=== PATIENT | female | born 1935 | race American Indian/Alaskan Native ===

== ENCOUNTER 2017-10-08 09:47 | Emergency (ER) | payer MEDICARE ==
[2017-10-08] MEDS ORDERED: MORPHINE IV ONE (10:24)
[2017-10-08] MEDS ORDERED: ZOFRAN IV ONE (10:24)
--- NOTE | 2017-10-08 10:30 | Emergency Department Report ---
HPI - General Chief Complaint: Abdominal Pain Time Seen by Provider: 10/08/17 10:13 - HPI HPI: Room 23 The patient is a 82-year-old female presenting with a chief complaint of abdominal pain and back pain. Patient states yesterday she developed lower back pain but last evening she developed lower abdominal pain described as a pressure and constant in nature. Patient denies nausea vomiting or diarrhea. Patient denies dysuria or hematuria. Patient states she has had similar pain in the past which was attributed to her first AAA Location: Abdomen, back Duration: [See above] Quality: Pressure Severity: Moderate Modifying factors: [see above] Context: [see above] Mode of transportation: [not driving] ED Past Medical Hx - Past Medical History Hx Hypertension: Yes Hx Diabetes: Yes Hx Arthritis: Yes Additional medical history: afib, hx of AAA 2 (first repaired in 2007) second last measured at approximately 5.5 cm - Surgical History Hx Coronary Stent: Yes Hx Open Heart Surgery: Yes Additional Surgical History: 2007 CABG. First AAA repair 2007 - Family History Family history: no significant - Social History Smoking Status: Never Smoker Substance Use Type: Alcohol (rarely) - Medications Home Medications: Home Medications Medication Instructions Recorded Confirmed Last Taken Type Aspirin [Aspirin BABY CHEW TAB] 81 mg PO QDAY 05/21/14 07/09/14 07/09/14 07:00 History Brinzolamide [Azopt 1%] 1 drop OU Q8HR 05/21/14 07/09/14 07/08/14 History Insulin NPH Hum/Reg Insulin Hm 30 unit SQ QHS 05/21/14 07/09/14 07/08/14 History [HumuLIN 70-30 Vial] Insulin NPH Hum/Reg Insulin Hm 36 unit SQ QAM 05/21/14 07/09/14 07/08/14 History [HumuLIN 70-30 Vial] Latanoprost 0.005% [Xalatan 0.005%] 1 drop OP QPM 05/21/14 07/09/14 07/08/14 History Lisinopril 10 mg PO DAILY 05/21/14 07/09/14 07/08/14 History Warfarin [Coumadin] 5 mg PO QDAY 05/21/14 07/09/14 07/03/14 History Metoprolol Xl [Metoprolol 100 mg PO QDAY #30 tablet 05/22/14 07/09/1414 07:00 Rx SUCCINATE ER TAB] Digoxin 125 mcg PO QDAY 06/21/14 07/09/14 07/09/14 History 0700 Pravastatin [Pravachol] 40 mg PO QDAY 06/21/14 07/09/14 07/08/14 History Cephalexin [Keflex] 500 mg PO Q8HR #9 capsule 07/10/14 Unknown Rx HYDROcodone/APAP 5-325 [[place] 1 each PO Q6H PRN #10 tablet 07/10/14 Unknown Rx 5-325 mg TAB] traMADol [Ultram] 50 mg PO Q6HR PRN #14 tablet 10/08/17 Unknown Rx ED Review of Systems ROS: Stated complaint: ABDOMINAL/BACK PAIN Other details as noted in HPI Gastrointestinal: abdominal pain. denies: nausea, vomiting, diarrhea Genitourinary: denies: dysuria, hematuria Musculoskeletal: back pain Skin: denies: rash, lesions Neurological: denies: headache, weakness, paresthesias Physical Exam - Physical Exam Vital Signs: Vital Signs 10/08/17 10:05 Temperature 97.8 F Pulse Rate 130 H Respiratory 18 Rate Blood Pressure 146/83 O2 Sat by Pulse 99 Oximetry Physical Exam: GENERAL: The patient is well-developed well-nourished female lying on stretcher not appearing to be in acute distress. [] HEENT: Normocephalic. Atraumatic. Extraocular motions are intact. Patient has moist mucous membranes. NECK: Supple. Trachea midline CHEST/LUNGS: Clear to auscultation. There is no respiratory distress noted. HEART/CARDIOVASCULAR: Regular. There is no tachycardia. There is no gallop rub or murmur. ABDOMEN: Abdomen is soft, with mild discomfort to palpation in the left lower quadrant. There is no pulsatile abdominal mass. There is no abdominal bruit auscultated. Patient has normal bowel sounds. There is no abdominal distention. SKIN: There is no rash. There is no edema. There is no diaphoresis. NEURO: The patient is awake, alert, and oriented. The patient is cooperative. The patient has normal speech MUSCULOSKELETAL: There is no evidence of acute injury. ED Course Vital Signs 10/08/17 10:05 Temperature 97.8 F Pulse Rate 130 H Respiratory 18 Rate Blood Pressure 146/83 O2 Sat by Pulse 99 Oximetry - Reevaluation(s) Reevaluation #1: 10/08/17 12:16 Patient lying comfortably on stretcher. Family updated on CT findings Reevaluation #2: 10/08/17 13:22 Patient no longer wishes to wait for pelvic ultrasound. ED Medical Decision Making - Lab Data Result diagrams: 10/08/17 10:14 10/08/17 10:35 Laboratory Tests 10/08/17 10/08/17 10/08/17 10:14 10:14 10:35 WBC 5.0 RBC 4.44 Hgb 12.4 Hct 38.0 MCV 86 MCH 28 MCHC 33 RDW 15.5 H Plt Count 132 L Lymph % (Auto) 29.3 [place] % (Auto) 8.5 H Eos % (Auto) 2.3 Baso % (Auto) 0.6 Lymph # 1.5 [place] # 0.4 Eos # 0.1 Baso # 0.0 Seg Neutrophils % 59.3 Seg Neutrophils # 3.0 PT 19.1 H INR 1.51 H APTT 29.4 Sodium 136 L Potassium 5.2 H Chloride 98.9 Carbon Dioxide 26 Anion Gap 16 BUN 12 Creatinine 0.9 Estimated GFR > 60 BUN/Creatinine Ratio 13 Glucose 299 H POC Glucose Calcium 9.6 Total Bilirubin 0.30 AST 20 ALT 24 Alkaline Phosphatase 142 H Total Creatine Kinase CK-MB (CK-2) CK-MB (CK-2) Rel Index Troponin T Total Protein 6.1 L Albumin 3.5 L Albumin/Globulin Ratio 1.3 Urine Color Urine Turbidity Urine pH Ur Specific [place] Urine Protein Urine Glucose (UA) Urine Ketones Urine Blood Urine Nitrite Urine Bilirubin Urine Urobilinogen Ur Leukocyte Esterase Urine WBC (Auto) Urine RBC (Auto) U Epithel Cells (Auto) Urine Bacteria (Auto) Digoxin Blood Type Antibody Screen 10/08/17 10/08/17 10/08/17 10:35 10:35 10:50 WBC RBC Hgb Hct MCV MCH MCHC RDW Plt Count Lymph % (Auto) [place] % (Auto) Eos % (Auto) Baso % (Auto) Lymph # [place] # Eos # Baso # Seg Neutrophils % Seg Neutrophils # PT INR APTT Sodium Potassium Chloride Carbon Dioxide Anion Gap BUN Creatinine Estimated GFR BUN/Creatinine Ratio Glucose POC Glucose Calcium Total Bilirubin AST ALT Alkaline Phosphatase Total Creatine Kinase 57 CK-MB (CK-2) 2.5 CK-MB (CK-2) Rel Index 4.3 H Troponin T < 0.010 Total Protein Albumin Albumin/Globulin Ratio Urine Color Urine Turbidity Urine pH Ur Specific [place] Urine Protein Urine Glucose (UA) Urine Ketones Urine Blood Urine Nitrite Urine Bilirubin Urine Urobilinogen Ur Leukocyte Esterase Urine WBC (Auto) Urine RBC (Auto) U Epithel Cells (Auto) Urine Bacteria (Auto) Digoxin 1.1 Blood Type AB POSITIVE Antibody Screen Negative 10/08/17 10/08/17 11:10 13:23 WBC RBC Hgb Hct MCV MCH MCHC RDW Plt Count Lymph % (Auto) [place] % (Auto) Eos % (Auto) Baso % (Auto) Lymph # [place] # Eos # Baso # Seg Neutrophils % Seg Neutrophils # PT INR APTT Sodium Potassium Chloride Carbon Dioxide Anion Gap BUN Creatinine Estimated GFR BUN/Creatinine Ratio Glucose POC Glucose 217 H Calcium Total Bilirubin AST ALT Alkaline Phosphatase Total Creatine Kinase CK-MB (CK-2) CK-MB (CK-2) Rel Index Troponin T Total Protein Albumin Albumin/Globulin Ratio Urine Color Straw Urine Turbidity Clear Urine pH 7.0 Ur Specific [place] 1.017 Urine Protein <15 mg/dl Urine Glucose (UA) >=500 Urine Ketones Neg Urine Blood Neg Urine Nitrite Neg Urine Bilirubin Neg Urine Urobilinogen < 2.0 Ur Leukocyte Esterase Lg Urine WBC (Auto) 10.0 H Urine RBC (Auto) 3.0 U Epithel Cells (Auto) 1.0 Urine Bacteria (Auto) 1+ Digoxin Blood Type Antibody Screen - EKG Data -: EKG Interpreted by [facility] EKG shows normal: sinus rhythm Rate: normal - EKG Data When compared to previous EKG there are: no significant change Interpretation: unchanged when compared t (07/09/2014), nonspecific ST-T wave zach - Radiology Data Radiology results: report reviewed (CT abdomen and pelvis), image reviewed (CT abdomen and pelvis) CT ABDOMEN PELVIS WITH AND WITHOUT CONTRAST: HISTORY: Abdominal pain, back pain, history of AAA. COMPARISON: No recent comparison. TECHNIQUE: Helical CT in 1.25mm intervals before and after IV contrast. Sagittal and coronal reconstructions. FINDINGS: Lung bases: Mild cardiomegaly and pacemaker device. The visualized lung bases are adequately aerated. Liver: Normal. Biliary system: At least one partially calcified gallstone is identified measuring 1.6 cm. No biliary dilatation or inflammation. Pancreas: Atrophic but no mass or inflammatory changes. Spleen: Normal. Kidneys/ureters/bladder: The kidneys and ureters are unremarkable. Mild diffuse bladder diverticulosis is identified. No obvious bladder mass. Adrenal glands: Normal. Aorta: An endovascular stent is partially imaged in the descending thoracic aorta, correlate with surgical history. The aorta is dilated throughout with diffuse calcifications. The abdominal aorta measures up to 3.7 cm in diameter. No evidence for dissection or extravasation. Intestines: Unremarkable given no oral contrast was administered. Appendix: Normal. Pelvic viscera: The uterus is retroflexed. No uterine fibroid disease. The endometrium however does appear to be thickened on the sagittal images measuring up to 2.6 cm. Ascites: None. Adenopathy: None. Musculoskeletal: Osteopenia. 1.4 cm anterolisthesis of L5 with respect to the sacrum is identified. This appears to be secondary to chronic bilateral pars defects. No evidence for acute fracture or suspicious bony lesion. IMPRESSION: No acute inflammatory process is identified. Mild cardiomegaly. Diffuse dilatation of the aorta but no focal aneurysm. No evidence for dissection. Large gallstone. Bladder diverticulosis. Abnormal appearance of the endometrium. The endometrium is thickened up to 2.6 cm. Further evaluation with pelvic ultrasound or MRI should be considered. Endometrial neoplasm cannot be excluded. 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 Transcribed By: TTR Dictated By: BEATRIS LOUIS JR, MD Electronically Authenticated By: BEATRIS LOUIS JR, MD Signed Date/Time: 10/08/17 1202 DD/ 1156 TD/TT: 10/08/17 1202 - Differential Diagnosis AAA, A. fib with rapid ventricular response, GERD, diverticulitis, pyelonep Critical care attestation.: If time is entered above; I have spent that time in minutes in the direct care of this critically ill patient, excluding procedure time. ED Disposition Clinical Impression: Acute abdominal pain, Endometrial thickening on ultra sound Disposition: - TO HOME OR SELFCARE Is pt being admited?: No Does the pt Need Aspirin: No Condition: Stable Instructions: Abdominal Pain (ED) Additional Instructions: Return to the emergency department immediately should you develop worsening symptoms, fever, inability to tolerate food or liquid or any other concerns. Prescriptions: traMADol [Ultram] 50 mg PO Q6HR PRN #14 tablet PRN Reason: Pain Referrals: PRIMARY CARE, [Primary Care Provider] - 3-5 Days RHONDA RILEY MD [Staff Physician] - [facility] (Dr Riley is an GENERAL OPHTHALMOLOGIST. Please follow up with him for further evaluation of your uterus and endometrial lining) Time of Disposition: 13:23
[2017-10-08] MEDS ORDERED: NACL ONE (11:09)
[2017-10-08 11:21] LABS: Basophils % (Auto) 0.6 % (0.0-1.8); Eosinophils # (Auto) 0.1 K/mm3 (0.0-0.4); Eosinophils % (Auto) 2.3 % (0.0-4.3); Hemoglobin 12.4 gm/dl (10.1-14.3); Lymphocytes # (Auto) 1.5 K/mm3 (1.2-5.4); Lymphocytes % (Auto) 29.3 % (13.4-35.0); Mean Corpuscular HGB Conc 33 % (30-34); Mean Corpuscular Hemoglobin 28 pg (28-32); Mean Corpuscular Volume 86 fl (79-97); Monocytes # (Auto) 0.4 K/mm3 (0.0-0.8); Monocytes % (Auto) 8.5 % (0.0-7.3); Platelet Count 132 K/mm3 (140-440); Red Blood Count 4.44 M/mm3 (3.65-5.03); Red Cell Distribution Width 15.5 % (13.2-15.2)
[2017-10-08 11:21] LABS: Creatine Kinase MB 2.5 ng/mL (0.0-4.0)
[2017-10-08 11:23] LABS: Alanine Aminotransferase 24 units/L (7-56); Albumin 3.5 g/dL (3.9-5); BUN/Creatinine Ratio 13; Blood Urea Nitrogen 12 mg/dL (7-17); Calcium 9.6 mg/dL (8.4-10.2); Hemolysis Index 38
[2017-10-08 11:43] LABS: INR 1.51 (0.87-1.13); Partial Thromboplastin Time 29.4 Sec. (24.2-36.6)
--- NOTE | 2017-10-08 12:09 | Cat Scan Report ---
CT ABDOMEN PELVIS WITH AND WITHOUT CONTRAST: HISTORY: Abdominal pain, back pain, history of AAA. COMPARISON: No recent comparison. TECHNIQUE: Helical CT in 1.25mm intervals before and after IV contrast. Sagittal and coronal reconstructions. FINDINGS: Lung bases: Mild cardiomegaly and pacemaker device. The visualized lung bases are adequately aerated. Liver: Normal. Biliary system: At least one partially calcified gallstone is identified measuring 1.6 cm. No biliary dilatation or inflammation. Pancreas: Atrophic but no mass or inflammatory changes. Spleen: Normal. Kidneys/ureters/bladder: The kidneys and ureters are unremarkable. Mild diffuse bladder diverticulosis is identified. No obvious bladder mass. Adrenal glands: Normal. Aorta: An endovascular stent is partially imaged in the descending thoracic aorta, correlate with surgical history. The aorta is dilated throughout with diffuse calcifications. The abdominal aorta measures up to 3.7 cm in diameter. No evidence for dissection or extravasation. Intestines: Unremarkable given no oral contrast was administered. Appendix: Normal. Pelvic viscera: The uterus is retroflexed. No uterine fibroid disease. The endometrium however does appear to be thickened on the sagittal images measuring up to 2.6 cm. Ascites: None. Adenopathy: None. Musculoskeletal: Osteopenia. 1.4 cm anterolisthesis of L5 with respect to the sacrum is identified. This appears to be secondary to chronic bilateral pars defects. No evidence for acute fracture or suspicious bony lesion. IMPRESSION: No acute inflammatory process is identified. Mild cardiomegaly. Diffuse dilatation of the aorta but no focal aneurysm. No evidence for dissection. Large gallstone. Bladder diverticulosis. Abnormal appearance of the endometrium. The endometrium is thickened up to 2.6 cm. Further evaluation with pelvic ultrasound or MRI should be considered. Endometrial neoplasm cannot be excluded. 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
[2017-10-08 12:27] LABS: Bacteria,Urine 1+ /HPF (Negative); Bilirubin,Urine NEG (Negative); Blood,Urine NEG (Negative); Color,Urine Straw (Yellow); Protein,Urine <15 mg/dL mg/dL (Negative); Urobilinogen,Urine < 2.0 mg/dL (<2.0)
[2017-10-08 13:46] VITALS: BP 134/76
== END 2017-10-08 13:45 | disposition home or self-care (01) ==
LOC: ED 09:47
DX: R10.30 Lower abdominal pain, unspecified (principal); I10 Essential (primary) hypertension; E11.9 Type 2 diabetes mellitus without complications
CPT/HCPCS: 36415; 74178; 80053; 80162; 81001; 82550; 82553; 82962; 84484; 85025; 85610; 85730; 86850; 86900; 86901; 93005; 93010; 96374; 96375; 99284; J2270; J2405; Q9967

== ENCOUNTER 2018-02-22 00:06 | Emergency (ER) | payer MEDICARE ==
[2018-02-22] MEDS ORDERED: ASPIRIN PO ONE (00:36)
[2018-02-22 00:56] LABS: Basophils # (Auto) 0.1 K/mm3 (0.0-0.1); Basophils % (Auto) 1.2 % (0.0-1.8); Eosinophils # (Auto) 0.1 K/mm3 (0.0-0.4); Eosinophils % (Auto) 1.7 % (0.0-4.3); Hematocrit 37.9 % (30.3-42.9); Hemoglobin 13.1 gm/dl (10.1-14.3); Lymphocytes % (Auto) 29.2 % (13.4-35.0); Mean Corpuscular HGB Conc 35 % (30-34); Mean Corpuscular Hemoglobin 29 pg (28-32); Mean Corpuscular Volume 84 fl (79-97); Monocytes # (Auto) 0.6 K/mm3 (0.0-0.8); Monocytes % (Auto) 8.8 % (0.0-7.3); Platelet Count 137 K/mm3 (140-440); Red Cell Distribution Width 15.7 % (13.2-15.2)
--- NOTE | 2018-02-22 01:06 | Emergency Department Report ---
ED Abdominal Pain HPI - General Chief Complaint: Chest Pain Stated Complaint: CHEST PAIN Time Seen by Provider: 02/22/18 00:51 Source: EMS Mode of arrival: Stretcher Limitations: Physical Limitation - History of Present Illness Initial Comments: Ms. Mckeon is 82 yo female with hx of IDDM, afib, aortic aneurysm, CAD s/p 3 vessel CABG. She presents with epigastric tightness. Worse with laying flat and palpation. Has had constipation with small BM today after stool softener. She denies pain. She feels bloated and "tight". No dyspnea. Recent dx of CHF and malignant HTN in [place] 2 weeks ago requiring hospitalization. No hx of abdominal surgeries. PCP Dr. Hahn Pot Builder Dr. Minor Vascular Surgeon Dr. Lisseth MIRELES Complaint: abdominal pain -: Sudden Radiation: epigastric Migration to: no migration Severity: severe Severity scale (0 -10): 10 Quality: fullness, other ("tightness") Consistency: constant Improves With: nothing Worsens With: movement, other (palpation) Context: other (hx of constipation) Associated Symptoms: denies other symptoms - Related Data Home Medications Medication Instructions Recorded Confirmed Last Taken Aspirin [Aspirin BABY CHEW TAB] 81 mg PO QDAY 05/21/14 02/22/18 07/09/14 07:00 Brinzolamide [Azopt 1%] 1 drop OU Q8HR 05/21/14 02/22/18 07/08/14 Insulin NPH Hum/Reg Insulin Hm 30 unit SQ QHS 05/21/14 02/22/18 07/08/14 [HumuLIN 70-30 Vial] Insulin NPH Hum/Reg Insulin Hm 36 unit SQ QAM 05/21/14 02/22/18 07/08/14 [HumuLIN 70-30 Vial] Latanoprost 0.005% 1 drop OP QPM 05/21/14 02/22/18 07/08/14 Lisinopril 10 mg PO DAILY 05/21/14 02/22/18 07/08/14 Warfarin [Coumadin] 5 mg PO QDAY 05/21/14 02/22/18 07/03/14 Digoxin 125 mcg PO QDAY 06/21/14 02/22/18 07/09/14 0700 Pravastatin [Pravachol] 40 mg PO QDAY 06/21/14 02/22/18 07/08/14 Lasix TAB 20 mg PO DAILY 02/22/18 02/22/18 Unknown Previous Rx's Medication Instructions Recorded Last Taken Type Metoprolol Xl [Metoprolol 100 mg PO QDAY #30 tablet 05/22/14 07/09/14 07:00 Rx SUCCINATE ER TAB] Cephalexin [Keflex] 500 mg PO Q8HR #9 capsule 07/10/14 Unknown Rx HYDROcodone/APAP 5-325 [[place] 1 each PO Q6H PRN #10 tablet 07/10/14 Unknown Rx 5-325 mg TAB] traMADol [Ultram] 50 mg PO Q6HR PRN #14 tablet 10/08/17 Unknown Rx Allergies Allergy/AdvReac Type Severity Reaction Status Date / Time No Known Allergies Allergy Verified 02/22/18 01:31 ED Review of Systems ROS: Stated complaint: CHEST PAIN Other details as noted in HPI Comment: All other systems reviewed and negative Constitutional: denies: fever, malaise Respiratory: denies: cough Cardiovascular: denies: chest pain ED Past Medical Hx - Past Medical History Previous Medical History?: Yes Hx Hypertension: Yes Hx Congestive Heart Failure: Yes (new diagnosis 2 weeks ago) Hx Diabetes: Yes Hx Arthritis: Yes Hx HIV: No Additional medical history: afib, hx of AAA 2 (first repaired in 2007) second last measured at approximately 5.5 cm - Surgical History Hx Coronary Stent: Yes Hx Open Heart Surgery: Yes Hx Pacemaker: Yes (AICD) Additional Surgical History: 2007 CABG. First AAA repair 2007 - Social History Smoking Status: Never Smoker Substance Use Type: None, Other (formerly chewed tobacco) Other Social History: lives with daughter - Medications Home Medications: Home Medications Medication Instructions Recorded Confirmed Last Taken Type Aspirin [Aspirin BABY CHEW TAB] 81 mg PO QDAY 05/21/14 02/22/18 07/09/14 07:00 History Brinzolamide [Azopt 1%] 1 drop OU Q8HR 05/21/14 02/22/18 07/08/14 History Insulin NPH Hum/Reg Insulin Hm 30 unit SQ QHS 05/21/14 02/22/18 07/08/14 History [HumuLIN 70-30 Vial] Insulin NPH Hum/Reg Insulin Hm 36 unit SQ QAM 05/21/14 02/22/18 07/08/14 History [HumuLIN 70-30 Vial] Latanoprost 0.005% 1 drop OP QPM 05/21/14 02/22/18 07/08/14 History Lisinopril 10 mg PO DAILY 05/21/14 02/22/18 07/08/14 History Warfarin [Coumadin] 5 mg PO QDAY 05/21/14 02/22/18 07/03/14 History Metoprolol Xl [Metoprolol 100 mg PO QDAY #30 tablet 05/22/14 02/22/18 07/09/14 07:00 Rx SUCCINATE ER TAB] Digoxin 125 mcg PO QDAY 06/21/14 02/22/18 07/09/14 History 0700 Pravastatin [Pravachol] 40 mg PO QDAY 06/21/14 02/22/18 07/08/14 History Cephalexin [Keflex] 500 mg PO Q8HR #9 capsule 07/10/14 02/22/18 Unknown Rx HYDROcodone/APAP 5-325 [[place] 1 each PO Q6H PRN #10 tablet 07/10/14 02/22/18 Unknown Rx 5-325 mg TAB] traMADol [Ultram] 50 mg PO Q6HR PRN #14 tablet 10/08/17 02/22/18 Unknown Rx Lasix TAB 20 mg PO DAILY 02/22/18 02/22/18 Unknown History ED Physical Exam - General Limitations: Physical Limitation General appearance: alert, in no apparent distress - Head Head exam: Present: atraumatic, normocephalic - Eye Eye exam: Present: normal appearance. Absent: PERRL, EOMI - ENT ENT exam: Present: mucous membranes moist - Neck Neck exam: Present: normal inspection. Absent: tenderness, meningismus - Respiratory Respiratory exam: Present: normal lung sounds bilaterally. Absent: respiratory distress, wheezes, rales, rhonchi - Cardiovascular Cardiovascular Exam: Present: regular rate, normal rhythm. Absent: systolic murmur, diastolic murmur, rubs, gallop - GI/Abdominal GI/Abdominal exam: Present: soft, distended, tenderness (epigastric ), guarding. Absent: rebound, rigid - Extremities Exam Extremities exam: Present: normal inspection - Back Exam Back exam: Present: normal inspection - Neurological Exam Neurological exam: Present: alert, oriented X3 - Psychiatric Psychiatric exam: Present: normal affect, normal mood - Skin Skin exam: Present: warm, dry, intact, normal color. Absent: rash - Other Other exam information: appears comfortable except during abdominal exam ED Course Vital Signs 02/22/18 00:30 Temperature 98.9 F Pulse Rate 70 Respiratory 25 H Rate Blood Pressure 175/67 O2 Sat by Pulse 100 Oximetry ED Medical Decision Making - Lab Data Result diagrams: 02/22/18 00:43 02/22/18 00:43 Laboratory Results - last 24 hr 02/22/18 02/22/18 02/22/18 00:43 00:43 01:10 WBC 6.7 RBC 4.50 Hgb 13.1 Hct 37.9 MCV 84 MCH 29 MCHC 35 H RDW 15.7 H Plt Count 137 L Lymph % (Auto) 29.2 [place] % (Auto) 8.8 H Eos % (Auto) 1.7 Baso % (Auto) 1.2 Lymph # 2.0 [place] # 0.6 Eos # 0.1 Baso # 0.1 Seg Neutrophils % 59.1 Seg Neutrophils # 4.0 PT 16.4 H INR 1.25 H Sodium 135 L Potassium 4.7 Chloride 100.4 Carbon Dioxide 23 Anion Gap 16 BUN 20 H Creatinine 1.1 Estimated GFR 58 BUN/Creatinine Ratio 18 Glucose 119 H Calcium 10.1 Troponin T < 0.010 Digoxin 02/22/18 01:10 WBC RBC Hgb Hct MCV MCH MCHC RDW Plt Count Lymph % (Auto) [place] % (Auto) Eos % (Auto) Baso % (Auto) Lymph # [place] # Eos # Baso # Seg Neutrophils % Seg Neutrophils # PT INR Sodium Potassium Chloride Carbon Dioxide Anion Gap BUN Creatinine Estimated GFR BUN/Creatinine Ratio Glucose Calcium Troponin T Digoxin 0.7 L Vital Signs - 24 hr 02/22/18 00:30 Temperature 98.9 F Pulse Rate 70 Respiratory 25 H Rate Blood Pressure 175/67 O2 Sat by Pulse 100 Oximetry - EKG Data 02/22/18 01:28 Time obtained 0120 Junctional rhythm rate of 70 bpm left axis deviation +PVCs no ST elevation no signs of ischemia - Medical Decision Making Ms. Mckeon presents with epigastric discomfort. DDX: biliary colic due to cholelithiasis seen on CT or constipation No indication of AAA rupture or ACS. No signs of peritonitis. Daughter with f/u with PCP this week. Critical care attestation.: If time is entered above; I have spent that time in minutes in the direct care of this critically ill patient, excluding procedure time. ED Disposition Clinical Impression: Cholelithiasis, Constipation, Epigastric discomfort Disposition: DC-01 TO HOME OR SELFCARE Is pt being admited?: No Does the pt Need Aspirin: No Condition: Stable Instructions: Biliary Colic (ED) Referrals: LOREN HAHN MD [Primary Care Provider] - [facility] Time of Disposition: 02:57
[2018-02-22 01:12] LABS: BUN/Creatinine Ratio 18; Blood Urea Nitrogen 20 mg/dL (7-17); Calcium 10.1 mg/dL (8.4-10.2); Hemolysis Index 5
[2018-02-22 01:35] LABS: INR 1.25 (0.87-1.13)
--- NOTE | 2018-02-22 02:01 | Cat Scan Report ---
FINAL REPORT PROCEDURE: CT ABDOMEN PELVIS WO CON TECHNIQUE: Computerized axial tomography of the abdomen and pelvis was performed without intravenous contrast. This study is performed without intravascular contrast material and its sensitivity for abdominal and pelvic pathology, including neoplasms, inflammation, abscess, free fluid, thrombosis, arterial dissection and infarction, is reduced compared with a contrast enhanced study. HISTORY: abdominal pain COMPARISON: 10/08/2017 FINDINGS: Visualized lower thorax: There is a stent graft in the descending thoracic aorta.. Liver: Normal size and attenuation. Spleen: Normal size and attenuation. Gallbladder and biliary system: There is cholelithiasis. There is no cholecystitis or biliary ductal dilatation.. Pancreas: Normal. Adrenals: Normal. Kidneys: There are no kidney stones or ureteral stones. There is no hydronephrosis.. GI tract: There is no bowel obstruction, colitis or enteritis. The appendix is normal.. Lymph nodes and mesentery: Normal. Vasculature: There is calcified plaque in the abdominal aorta. There is aneurysmal dilatation of the proximal abdominal aorta at 4.5 centimeters in diameter.. Bladder: There is thickening of the urinary bladder wall. There is no mass or stone.. Reproductive organs: Uterus is intact. Peritoneum: There is no ascites or free air, abscess or adenopathy.. Musculoskeletal structures: There is grade 2 anterior spondylolisthesis of L5 over S1 with bilateral spondylolysis and severe bilateral foraminal stenosis.. Other: None. IMPRESSION: There is cholelithiasis. There is no cholecystitis or biliary ductal dilatation.. There are no kidney stones or ureteral stones. There is no hydronephrosis.. There is no bowel obstruction, colitis or enteritis. The appendix is normal.. There is aneurysmal dilatation of the proximal abdominal aorta at 4.5 centimeters in diameter.. There is thickening of the urinary bladder wall. There is no mass or stone.. There is no ascites or free air, abscess or adenopathy.. There is grade 2 anterior spondylolisthesis of L5 over S1 with bilateral spondylolysis and severe bilateral foraminal stenosis.. .
[2018-02-22 03:30] VITALS: BP 129/76
== END 2018-02-22 03:30 | disposition home or self-care (01) ==
LOC: ED 00:06
DX: K80.20 Calculus of gallbladder without cholecystitis without obstruction (principal); K59.00 Constipation, unspecified; I11.0 Hypertensive heart disease with heart failure; I50.9 Heart failure, unspecified; E11.9 Type 2 diabetes mellitus without complications; Z95.1 Presence of aortocoronary bypass graft; Z87.891 Personal history of nicotine dependence; Z79.82 Long term (current) use of aspirin; Z79.4 Long term (current) use of insulin
CPT/HCPCS: 36415; 74176; 80048; 80162; 84484; 85025; 85610; 93005; 93010; 99285

== ENCOUNTER 2019-02-21 01:06 | Observation (INO) | payer MEDICARE ==
[2019-02-21 01:43] LABS: Basophils # (Auto) 0.1 K/mm3 (0.0-0.1); Basophils % (Auto) 1.2 % (0.0-1.8); Eosinophils # (Auto) 0.2 K/mm3 (0.0-0.4); Eosinophils % (Auto) 2.9 % (0.0-4.3); Hemoglobin 12.4 gm/dl (10.1-14.3); Lymphocytes # (Auto) 1.7 K/mm3 (1.2-5.4); Lymphocytes % (Auto) 29.8 % (13.4-35.0); Mean Corpuscular HGB Conc 33 % (30-34); Mean Corpuscular Volume 84 fl (79-97); Monocytes # (Auto) 0.6 K/mm3 (0.0-0.8); Monocytes % (Auto) 10.4 % (0.0-7.3); Platelet Count 142 K/mm3 (140-440); Red Blood Count 4.55 M/mm3 (3.65-5.03); Red Cell Distribution Width 16.3 % (13.2-15.2)
--- NOTE | 2019-02-21 01:51 | XRay Report ---
CHEST 1 VIEW INDICATION: chest pain. COMPARISON: None. FINDINGS: Support devices: Thoracic aortic stent projects in expected position. Cardiac leads project in expect ed position. Heart: Normal. Lungs/Pleura: No acute pulmonary or pleural findings. There is mild elevation of the left hemidiaphragm. IMPRESSION: 1. No acute findings. Signer Name: Philip Lombardo MD Signed: 02/21/2019 1:46 AM Workstation Name: [id number]
[2019-02-21 02:04] LABS: INR 1.77 (0.87-1.13)
[2019-02-21 02:05] LABS: Partial Thromboplastin Time 26.4 Sec. (24.2-36.6)
[2019-02-21 02:07] LABS: Alanine Aminotransferase 13 units/L (7-56); Albumin 3.8 g/dL (3.9-5); BUN/Creatinine Ratio 16; Blood Urea Nitrogen 18 mg/dL (7-17); Calcium 10.4 mg/dL (8.4-10.2); Hemolysis Index 26
--- NOTE | 2019-02-21 02:39 | Emergency Department Report ---
ED Chest Pain HPI - General Chief Complaint: Chest Pain Stated Complaint: CHEST TIGHTNESS Time Seen by Provider: 02/21/19 01:15 Source: EMS Mode of arrival: Ambulatory Limitations: No Limitations - History of Present Illness Initial Comments: 82-year-old female with history of CAD, A. fib, pacemaker presents to ED with complaint of chest pain. Patient reports onset of chest pain just prior to arrival, while lying in her bed. Patient reports pain lasted for approximately 5 minutes, located in a band-like fashion around the epigastric region. Patient reports associated shortness of breath of time, which is now resolved. Denies leg pain, swelling. Patient given ASA by EMS. PCP: [facility]: Iván MIRELES Complaint: chest pain -: This morning Onset: during rest Pain Location: epigastric Pain Radiation: other (around both sides to the back) Severity: moderate Severity scale (0 -10): 4 Quality: tightness Consistency: now resolved Improves With: nothing Worsens With: nothing re: dyspnea. denies: nausea, vomting, diaphoresis Other Symptoms: denies: cough, fever, leg swelling - Related Data Home Medications Medication Instructions Recorded Confirmed Last Taken Aspirin [Aspirin BABY CHEW TAB] 81 mg PO QDAY 05/21/14 02/21/19 07/09/14 07:00 Brinzolamide [Azopt 1%] 1 drop OU Q8HR 05/21/14 02/21/19 07/08/14 Insulin NPH Hum/Reg Insulin Hm 30 unit SQ QHS 05/21/14 02/21/19 07/08/14 [HumuLIN 70-30 Vial] Insulin NPH Hum/Reg Insulin Hm 36 unit SQ QAM 05/21/14 02/21/19 07/08/14 [HumuLIN 70-30 Vial] Latanoprost 0.005% 1 drop OP QPM 05/21/14 02/21/19 07/08/14 Lisinopril 10 mg PO DAILY 05/21/14 02/21/19 07/08/14 Warfarin [Coumadin] 5 mg PO QDAY 05/21/14 02/21/19 07/03/14 Digoxin 125 mcg PO QDAY 06/21/14 02/21/19 07/09/14 0700 Pravastatin [Pravachol] 40 mg PO QDAY 06/21/14 02/21/19 07/08/14 Lasix TAB 20 mg PO DAILY 02/22/18 02/21/19 Unknown Previous Rx's Medication Instructions Recorded Last Taken Type Metoprolol Xl [Metoprolol 100 mg PO QDAY #30 tablet 05/22/14 07/09/14 07:00 Rx SUCCINATE ER TAB] Cephalexin [Keflex] 500 mg PO Q8HR #9 capsule 07/10/14 Unknown Rx HYDROcodone/APAP 5-325 [[place] 1 each PO Q6H PRN #10 tablet 07/10/14 Unknown Rx 5-325 mg TAB] traMADol [Ultram] 50 mg PO Q6HR PRN #14 tablet 10/08/17 Unknown Rx Allergies Allergy/AdvReac Type Severity Reaction Status Date / Time No Known Allergies Allergy Verified 02/22/18 01:31 Heart Score - HEART Score History: Slightly suspicious EKG: Significant ST-depression Age: > 65 Risk factors: 1-2 risk factors Troponin: < normal limit HEART Score: 5 ED Review of Systems ROS: Stated complaint: CHEST TIGHTNESS Other details as noted in HPI Comment: All other systems reviewed and negative Constitutional: denies: chills, fever Respiratory: shortness of breath Cardiovascular: chest pain Gastrointestinal: denies: nausea, vomiting Musculoskeletal: other (denies leg pain or swelling) ED Past Medical Hx - Past Medical History Hx Hypertension: Yes Hx Congestive Heart Failure: Yes (new diagnosis 2 weeks ago) Hx Diabetes: Yes Hx Arthritis: Yes Hx HIV: No Additional medical history: afib, hx of AAA 2 (first repaired in 2007) second last measured at approximately 5.5 cm - Surgical History Hx Coronary Stent: Yes Hx Open Heart Surgery: Yes Hx Pacemaker: Yes (AICD) Additional Surgical History: 2007 CABG. First AAA repair 2007 - Social History Smoking Status: Never Smoker - Medications Home Medications: Home Medications Medication Instructions Recorded Confirmed Last Taken Type Aspirin [Aspirin BABY CHEW TAB] 81 mg PO QDAY 05/21/14 02/21/19 07/09/14 07:00 History Brinzolamide [Azopt 1%] 1 drop OU Q8HR 05/21/14 02/21/19 07/08/14 History Insulin NPH Hum/Reg Insulin Hm 30 unit SQ QHS 05/21/14 02/21/19 07/08/14 History [HumuLIN 70-30 Vial] Insulin NPH Hum/Reg Insulin Hm 36 unit SQ QAM 05/21/14 02/21/19 07/08/14 History [HumuLIN 70-30 Vial] Latanoprost 0.005% 1 drop OP QPM 05/21/14 02/21/19 07/08/14 History Lisinopril 10 mg PO DAILY 05/21/14 02/21/19 07/08/14 History Warfarin [Coumadin] 5 mg PO QDAY 05/21/14 02/21/19 07/03/14 History Metoprolol Xl [Metoprolol 100 mg PO QDAY #30 tablet 05/22/14 02/21/19 07/09/14 07:00 Rx SUCCINATE ER TAB] Digoxin 125 mcg PO QDAY 06/21/14 02/21/19 07/09/14 History 0700 Pravastatin [Pravachol] 40 mg PO QDAY 06/21/14 02/21/19 07/08/14 History Cephalexin [Keflex] 500 mg PO Q8HR #9 capsule 07/10/14 02/21/19 Unknown Rx HYDROcodone/APAP 5-325 [[place] 1 each PO Q6H PRN #10 tablet 07/10/14 02/21/19 Unknown Rx 5-325 mg TAB] traMADol [Ultram] 50 mg PO Q6HR PRN #14 tablet 10/08/17 02/21/19 Unknown Rx Lasix TAB 20 mg PO DAILY 02/22/18 02/21/19 Unknown History ED Physical Exam - General Limitations: No Limitations General appearance: alert, in no apparent distress - Head Head exam: Present: atraumatic, normocephalic - Eye Eye exam: Present: normal appearance - ENT ENT exam: Present: mucous membranes moist - Neck Neck exam: Present: normal inspection - Respiratory Respiratory exam: Present: normal lung sounds bilaterally. Absent: respiratory distress - Cardiovascular Cardiovascular Exam: Present: regular rate, normal rhythm - GI/Abdominal GI/Abdominal exam: Present: soft. Absent: distended, tenderness - Extremities Exam Extremities exam: Present: normal inspection. Absent: pedal edema, calf tenderness - Neurological Exam Neurological exam: Present: alert, oriented X3 - Psychiatric Psychiatric exam: Present: normal affect, normal mood - Skin Skin exam: Present: warm, dry, intact, normal color. Absent: rash ED Course Vital Signs 02/21/19 02/21/19 02/21/19 01:35 01:36 01:38 Temperature 98.1 F Pulse Rate 75 75 93 H Respiratory 17 18 16 Rate Blood Pressure 144/83 144/83 O2 Sat by Pulse 99 96 97 Oximetry 02/21/19 02/21/19 02/21/19 01:40 02:00 02:31 Temperature 98.1 F Pulse Rate 81 77 Respiratory 19 24 Rate Blood Pressure 144/83 157/66 O2 Sat by Pulse 97 99 Oximetry 02/21/19 02/21/19 03:01 03:36 Temperature Pulse Rate 81 78 Respiratory 20 15 Rate Blood Pressure 157/66 157/66 O2 Sat by Pulse 97 97 Oximetry ED Medical Decision Making - Lab Data Result diagrams: 02/21/19 03:05 02/21/19 03:05 - EKG Data -: EKG Interpreted by Me EKG shows normal: axis, QRS complexes Rate: normal - EKG Data When compared to previous EKG there are: no significant change (compared to Sep 2017) Interpretation: other (Afib; ST depressions V2,V3; T wave inversions I, aVL) - Radiology Data Radiology results: report reviewed, image reviewed - Medical Decision Making - 82 yo F w/ chest pain, now resolved - EKG unchanged from previous EKG from one year ago; no ST elevations present - pacemaker in place - troponin normal - will admit to hospitalist for further management - Differential Diagnosis ACS, pancreatitis, GERD Critical care attestation.: If time is entered above; I have spent that time in minutes in the direct care of this critically ill patient, excluding procedure time. ED Disposition Clinical Impression: Acute chest pain Disposition: -09 OP ADMIT IP TO THIS HOSP Is pt being admited?: Yes Condition: Stable Time of Disposition: 02:45
[2019-02-21] MEDS ORDERED: MORPHINE IV PRN (02:46)
[2019-02-21] MEDS ORDERED: SODIUM CHLORIDE FLUSH SYRINGE 10 ML IV PRN ×2 (02:46→02:54)
[2019-02-21] MEDS ORDERED: TYLENOL PO PRN (02:46)
[2019-02-21] MEDS ORDERED: ZOFRAN IV PRN (02:46)
[2019-02-21] MEDS ORDERED: APRESOLINE IV PRN ×2 (02:54→04:38)
--- NOTE | 2019-02-21 02:58 | History and Physical Report ---
<ILIANA DEL RIO - Last Filed: 02/21/19 03:40> History of Present Illness Date of examination: 02/21/19 Date of admission: 02/21/2019 Chief complaint: Epigastric pain History of present illness: Patient is an 82-year-old female with PMHx of CAD, CHF, A. fib (on Coumadin), DM type 2, pacemaker, AAA (following with vascular) who presents to the ER with complaint of abdominal pain. Patient states that the pain started around 6 pm, it is located in the epigastric area radiating to the right upper back. Pt's family at bedside reports prior history of similar pain, she has a prior AAA surgery and she is being followed by vascular surgery (Dr. Montanez) for a smaller AAA (unknown size). Patient reports some SOB, denies nausea, denies vomiting, denies diarrhea, denies food association, denies fever, denies chills. Patient was admitted to 4 from the evaluation of pain. CT scan of the abdomen is pending, pt is admitted for further evaluation of her pain. Past History Past Medical History: CAD, diabetes, heart failure, hypertension Past Surgical History: Other (AAA repair) Social history: no significant social history Family history: no significant family history Medications and Allergies Allergies Allergy/AdvReac Type Severity Reaction Status Date / Time No Known Allergies Allergy Verified 02/22/18 01:31 Home Medications Medication Instructions Recorded Confirmed Last Taken Type Aspirin [Aspirin BABY CHEW TAB] 81 mg PO QDAY 05/21/14 02/21/19 07/09/14 07:00 History Brinzolamide [Azopt 1%] 1 drop OU Q8HR 05/21/14 02/21/19 07/08/14 History Insulin NPH Hum/Reg Insulin Hm 30 unit SQ QHS 05/21/14 02/21/19 07/08/14 History [HumuLIN 70-30 Vial] Insulin NPH Hum/Reg Insulin Hm 36 unit SQ QAM 05/21/14 02/21/19 07/08/14 History [HumuLIN 70-30 Vial] Latanoprost 0.005% 1 drop OP QPM 05/21/14 02/21/19 07/08/14 History Lisinopril 10 mg PO DAILY 05/21/14 02/21/19 07/08/14 History Warfarin [Coumadin] 5 mg PO QDAY 05/21/14 02/21/19 07/03/14 History Metoprolol Xl [Metoprolol 100 mg PO QDAY #30 tablet 05/22/14 02/21/19 07/09/14 07:00 Rx SUCCINATE ER TAB] Digoxin 125 mcg PO QDAY 06/21/14 02/21/19 07/09/14 History 0700 Pravastatin [Pravachol] 40 mg PO QDAY 06/21/14 02/21/19 07/08/14 History HYDROcodone/APAP 5-325 [[place] 1 each PO Q6H PRN #10 tablet 07/10/14 02/21/19 Unknown Rx 5-325 mg TAB] traMADol [Ultram 50 MG tab] 50 mg PO Q6HR PRN #14 tablet 10/08/17 02/21/19 Unknown Rx Lasix TAB 20 mg PO DAILY 02/22/18 02/21/19 Unknown History Dorzolamide HCl/Timolol Maleat 1 drop OS BID 02/21/19 02/21/19 Unknown History [Dorzolamide-Timolol Eye Drops] Active Meds: Active Medications Acetaminophen (Tylenol) 650 mg PO Q4H PRN PRN Reason: Pain MILD(1-3)/Fever >100.5/HOGAN Morphine Sulfate (Morphine) 2 mg IV Q4H PRN PRN Reason: Pain, Moderate (4-6) Ondansetron HCl (Zofran) 4 mg IV Q8H PRN PRN Reason: Nausea And Vomiting Sodium Chloride (Sodium Chloride Flush Syringe 10 Ml) 10 ml IV BID TIM Sodium Chloride (Sodium Chloride Flush Syringe 10 Ml) 10 ml IV PRN PRN PRN Reason: LINE FLUSH Review of Systems Gastrointestinal: abdominal pain (epigastric) Exam - Constitutional Vitals: Temp Pulse Resp BP Pulse Ox 98.1 F 93 H 16 144/83 97 02/21/19 01:40 02/21/19 01:38 02/21/19 01:38 02/21/19 01:38 02/21/19 01:38 General appearance: Present: no acute distress - EENT Eyes: Present: EOM intact ENT: hearing intact - Neck Neck: Present: normal ROM - Respiratory Respiratory effort: normal Respiratory: negative: CTA - Cardiovascular Rhythm: regular Heart Sounds: Present: S1 & S2 - Extremities Extremities: no ischemia, No edema Peripheral Pulses: within normal limits - Abdominal General gastrointestinal: Present: tender (epigastric, right costovertebral tenderness) Localized gastrointestinal: tender: epigastric periumbilical Female genitourinary: Present: deferred - Rectal Rectal Exam: deferred - Integumentary Integumentary: Present: warm, dry - Psychiatric Psychiatric: appropriate mood/affect - Neurologic Neurologic: moves all extremities Results - Labs CBC & Chem 7: 02/21/19 03:05 02/21/19 03:05 Labs: Laboratory Last Values WBC 5.7 K/mm3 (4.5-11.0) 02/21/19 01:31 RBC 4.55 M/mm3 (3.65-5.03) 02/21/19 01:31 Hgb 12.4 gm/dl (10.1-14.3) 02/21/19 01:31 Hct 38.0 % (30.3-42.9) 02/21/19 01:31 MCV 84 fl (79-97) 02/21/19 01:31 MCH 27 pg (28-32) L 02/21/19 01:31 MCHC 33 % (30-34) 02/21/19 01:31 RDW 16.3 % (13.2-15.2) H 02/21/19 01:31 Plt Count 142 K/mm3 (140-440) 02/21/19 01:31 Lymph % (Auto) 29.8 % (13.4-35.0) 02/21/19 01:31 [place] % (Auto) 10.4 % (0.0-7.3) H 02/21/19 01:31 Eos % (Auto) 2.9 % (0.0-4.3) 02/21/19 01:31 Baso % (Auto) 1.2 % (0.0-1.8) 02/21/19 01:31 Lymph # 1.7 K/mm3 (1.2-5.4) 02/21/19 01:31 [place] # 0.6 K/mm3 (0.0-0.8) 02/21/19 01:31 Eos # 0.2 K/mm3 (0.0-0.4) 02/21/19 01:31 Baso # 0.1 K/mm3 (0.0-0.1) 02/21/19 01:31 Seg Neutrophils % 55.7 % (40.0-70.0) 02/21/19 01:31 Seg Neutrophils # 3.2 K/mm3 (1.8-7.7) 02/21/19 01:31 PT 20.2 Sec. (12.2-14.9) H 02/21/19 01:35 INR 1.77 (0.87-1.13) H 02/21/19 01:35 APTT 26.4 Sec. (24.2-36.6) 02/21/19 01:35 Sodium 138 mmol/L (137-145) 02/21/19 01:35 Potassium 4.7 mmol/L (3.6-5.0) 02/21/19 01:35 Chloride 103.2 mmol/L (98-107) 02/21/19 01:35 Carbon Dioxide 26 mmol/L (22-30) 02/21/19 01:35 14 mmol/L 02/21/19 01:35 BUN 18 mg/dL (7-17) H 02/21/19 01:35 1.1 mg/dL (0.7-1.2) 02/21/19 01:35 Estimated GFR 58 ml/min 02/21/19 01:35 16 % 02/21/19 01:35 Glucose 68 mg/dL (65-100) 02/21/19 01:35 Calcium 10.4 mg/dL (8.4-10.2) H 02/21/19 01:35 0.30 mg/dL (0.1-1.2) 02/21/19 01:35 AST 16 units/L (5-40) 02/21/19 01:35 ALT 13 units/L (7-56) 02/21/19 01:35 65 units/L (35-129) 02/21/19 01:35 < 0.010 ng/mL (0.00-0.029) 02/21/19 01:35 7.1 g/dL (6.3-8.2) 02/21/19 01:35 3.8 g/dL (3.9-5) L 02/21/19 01:35 1.2 % 02/21/19 01:35 15 units/L (13-60) 02/21/19 01:35 Assessment and Plan Assessment and plan: 1. Epigastric pain 2. CAD 3. CHF (EF unknown) 4. DM type II (stable) 5. A. fib (on Coumadin) 6. Subtherapeutic INR 7. AAA repair 8. Abnormal EKG 9. Hyperkalemia Plan: Patient is admitted for right upper quadrant abdominal pain CT scan of the abdomen/pelvis Cardiac enzymes every 62 more Assessment and management with insulin sliding scale Resume home meds including Coumadin PT and INR in a.m. Morphine PRN for pain Plan discussed with patient and family, most understanding Patient's condition and plan of care discussed with Dr. Miller Advance Directives: Yes VTE prophylaxis?: Chemical Contraindication Mechanical VTE Prophylaxis: Contraindicated (coumadin) Plan of care discussed with patient/family: Yes <MAGDIEL MILLER E - Last Filed: 02/24/19 22:13> History of Present Illness Date of admission: 02/21/19 02:46 Medications and Allergies Active Meds: Active Medications Acetaminophen (Tylenol) 650 mg PO Q4H PRN PRN Reason: Pain MILD(1-3)/Fever >100.5/HOGAN Acetaminophen/Hydrocodone Bitart ([place] 5/325) 1 each PO Q6H PRN PRN Reason: Moderate Pain Aspirin (Baby Aspirin) 81 mg PO QDAY TIM Digoxin (Lanoxin) 0.125 mg PO QDAY@1700 TIM Enoxaparin Sodium (Lovenox) 70 mg SUB-Q BID TIM Furosemide (Lasix) 20 mg PO DAILY [facility] Hydralazine HCl (Apresoline) 5 mg IV Q6HR PRN PRN Reason: FOR SBP > target Insulin Human Isoph/Insulin Regular (Humulin 70/30) 30 unit SUB-Q QHS [facility] Insulin Human Isoph/Insulin Regular (Humulin 70/30) 36 unit SUB-Q QAMDIAB TIM Latanoprost (Latanoprost 0.005%) 1 drops OD QPM TIM Lisinopril (Zestril) 10 mg PO DAILY [facility] Metoprolol Succinate (Toprol Xl) 100 mg PO QDAY [facility] Miscellaneous Medication (Brinzolamide [Azopt 1%]) 1 drop OU Q8HR TIM Ondansetron HCl (Zofran) 4 mg IV Q8H PRN PRN Reason: Nausea And Vomiting Pravastatin Sodium (Pravachol) 40 mg PO QDAY TIM Sodium Chloride (Sodium Chloride Flush Syringe 10 Ml) 10 ml IV BID TIM Sodium Chloride (Sodium Chloride Flush Syringe 10 Ml) 10 ml IV PRN PRN PRN Reason: LINE FLUSH Tramadol HCl (Ultram) 50 mg PO Q6HR PRN PRN Reason: Pain Warfarin Sodium (Coumadin) 5 mg PO QDAY@1700 TIM; Protocol Exam - Constitutional Vitals: Temp Pulse Resp BP Pulse Ox 98.4 F 100 H 18 153/69 97 02/21/19 05:32 02/21/19 05:32 02/21/19 05:32 02/21/19 05:32 02/21/19 05:32 Results - Labs CBC & Chem 7: 02/22/19 03:34 02/22/19 03:34 Labs: Laboratory Last Values WBC 7.5 K/mm3 (4.5-11.0) 02/21/19 03:05 RBC 4.62 M/mm3 (3.65-5.03) 02/21/19 03:05 Hgb 12.5 gm/dl (10.1-14.3) 02/21/19 03:05 Hct 39.0 % (30.3-42.9) 02/21/19 03:05 MCV 84 fl (79-97) 02/21/19 03:05 MCH 27 pg (28-32) L 02/21/19 03:05 MCHC 32 % (30-34) 02/21/19 03:05 RDW 16.5 % (13.2-15.2) H 02/21/19 03:05 Plt Count 152 K/mm3 (140-440) 02/21/19 03:05 Lymph % (Auto) 23.4 % (13.4-35.0) 02/21/19 03:05 [place] % (Auto) 8.8 % (0.0-7.3) H 02/21/19 03:05 Eos % (Auto) 1.6 % (0.0-4.3) 02/21/19 03:05 Baso % (Auto) 1.0 % (0.0-1.8) 02/21/19 03:05 Lymph # 1.8 K/mm3 (1.2-5.4) 02/21/19 03:05 [place] # 0.7 K/mm3 (0.0-0.8) 02/21/19 03:05 Eos # 0.1 K/mm3 (0.0-0.4) 02/21/19 03:05 Baso # 0.1 K/mm3 (0.0-0.1) 02/21/19 03:05 Seg Neutrophils % 65.2 % (40.0-70.0) 02/21/19 03:05 Seg Neutrophils # 4.9 K/mm3 (1.8-7.7) 02/21/19 03:05 PT 20.2 Sec. (12.2-14.9) H 02/21/19 01:35 INR 1.77 (0.87-1.13) H 02/21/19 01:35 APTT 26.4 Sec. (24.2-36.6) 02/21/19 01:35 Sodium 135 mmol/L (137-145) L 02/21/19 03:05 Potassium 5.2 mmol/L (3.6-5.0) H 02/21/19 03:05 Chloride 101.5 mmol/L (98-107) 02/21/19 03:05 Carbon Dioxide 26 mmol/L (22-30) 02/21/19 03:05 13 mmol/L 02/21/19 03:05 BUN 18 mg/dL (7-17) H 02/21/19 03:05 1.2 mg/dL (0.7-1.2) 02/21/19 03:05 Estimated GFR 52 ml/min 02/21/19 03:05 15 % 02/21/19 03:05 Glucose 137 mg/dL (65-100) H 02/21/19 03:05 7.8 % (4-6) H 02/21/19 02:59 Calcium 10.1 mg/dL (8.4-10.2) 02/21/19 03:05 0.30 mg/dL (0.1-1.2) 02/21/19 01:35 AST 16 units/L (5-40) 02/21/19 01:35 ALT 13 units/L (7-56) 02/21/19 01:35 65 units/L (35-129) 02/21/19 01:35 < 0.010 ng/mL (0.00-0.029) 02/21/19 01:35 7.1 g/dL (6.3-8.2) 02/21/19 01:35 3.8 g/dL (3.9-5) L 02/21/19 01:35 1.2 % 02/21/19 01:35 Triglycerides 173 mg/dL (2-149) H 02/21/19 02:59 Cholesterol 176 mg/dL (50-199) 02/21/19 02:59 108 mg/dL (50-130) 02/21/19 02:59 47 mg/dL (40-59) 02/21/19 02:59 3.74 % 02/21/19 02:59 15 units/L (13-60) 02/21/19 01:35 Assessment and Plan Assessment and plan: 82 -year-old with a history of A. fib, hypertension, diabetes coronary artery disease, hyperlipidemia, CHF, aneurysm comes to the emergency room with complaints of tightness around her epigastric area that lasted less than 5 minutes . I saw and evaluated the patient. I agree with the findings and the plan of care as documented in the Nurse Practitioner'snote, with the following corrections, DC stress test, consult cardiology, follow PT/INR
[2019-02-21 03:16] LABS: Basophils # (Auto) 0.1 K/mm3 (0.0-0.1); Eosinophils # (Auto) 0.1 K/mm3 (0.0-0.4); Eosinophils % (Auto) 1.6 % (0.0-4.3); Hemoglobin 12.5 gm/dl (10.1-14.3); Lymphocytes # (Auto) 1.8 K/mm3 (1.2-5.4); Lymphocytes % (Auto) 23.4 % (13.4-35.0); Mean Corpuscular HGB Conc 32 % (30-34); Mean Corpuscular Volume 84 fl (79-97); Monocytes # (Auto) 0.7 K/mm3 (0.0-0.8); Monocytes % (Auto) 8.8 % (0.0-7.3); Platelet Count 152 K/mm3 (140-440); Red Blood Count 4.62 M/mm3 (3.65-5.03); Red Cell Distribution Width 16.5 % (13.2-15.2)
[2019-02-21 03:34] LABS: Calcium 10.1 mg/dL (8.4-10.2)
[2019-02-21 04:20] LABS: Chol/HDL Ratio 3.74 %
[2019-02-21] MEDS ORDERED: NORCO 5/325 PO PRN (04:25)
--- NOTE | 2019-02-21 04:42 | Cat Scan Report ---
CT ABDOMEN AND PELVIS WITHOUT IV CONTRAST INDICATION: abdominal pain. COMPARISON: CT 02/22/2018. TECHNIQUE: All CT scans at this facility use dose modulation, automated exposure control, iterative reconstructi on or weight based dosing, when appropriate, to reduce radiation dose to as low as reasonably achieva ble. FINDINGS: Lung Bases: Subpleural cystic changes are again seen within the inferior lungs. Skeletal System: No acute abnormality. 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 There is advanced discogenic degenerative change at this level. ABDOMEN: Liver: Normal. Gallbladder: Gallstone is again noted. The gallbladder is otherwise unremarkable. Bile Ducts: Normal. Pancreas: Normal. Spleen: Normal. Adrenals: Normal. Right Kidney: Normal. Left Kidney: Normal. Stomach and Bowel: Normal. Lymph Nodes: No significant adenopathy. Aorta: AP diameter of the aorta at the diaphragmatic hiatus is 4.6 cm (previously 4.5 cm). AP diamete r at the level of the renal arteries is 3.6 cm. This is unchanged. Advanced atherosclerotic calcifica tion is noted. Distal descending thoracic aortic stent graft appears unchanged. PELVIS: Colon: Normal aside from diverticulosis. Urinary Bladder and Distal Ureters: Small bladder diverticula are again noted. The bladder is otherwi se unremarkable. Appendix: Normal. Lymph Nodes: No significant adenopathy. Additional Findings: None. IMPRESSION: 1. Within the limitations of non-contrast technique, no acute process in the abdomen or pelvis. 2. Proximal abdominal aortic aneurysm unchanged. Additional incidental findings, as above, are stabl e. Signer Name: Philip Lombardo MD Signed: 02/21/2019 4:37 AM Workstation Name: [id number]
[2019-02-21] MEDS ORDERED: ULTRAM PO PRN (05:36)
[2019-02-21] MEDS ORDERED: NON-FORMULARY (Brinzolamide [Azopt 1%] 1 DROP) OU SCH (06:00)
[2019-02-21] MEDS ORDERED: D50W (25GM) Syringe IV PRN (06:33)
[2019-02-21] MEDS: HumaLOG SUB-Q SCH ×4 (08:19→21:33)
[2019-02-21] MEDS: TOPROL XL PO SCH (09:55)
[2019-02-21] MEDS: LASIX PO SCH (09:55)
[2019-02-21] MEDS: BABY ASPIRIN PO SCH (09:56)
[2019-02-21] MEDS: ZESTRIL PO SCH (09:56)
[2019-02-21] MEDS: PRAVACHOL PO SCH (09:56)
[2019-02-21] MEDS ORDERED: LOVENOX SUB-Q ONE (10:00)
[2019-02-21] MEDS ORDERED: LOVENOX SUB-Q SCH (10:00)
[2019-02-21] MEDS ORDERED: NON-FORMULARY (Lasix Tab 20 MG) PO SCH (10:00)
--- NOTE | 2019-02-21 10:14 | Consultation ---
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 Patient is anticoagulated with warfarin. Routine pacemaker interrogations have revealed normal device function. Patient has a history of coronary artery disease with remote bypass grafting. In 2012 she had a normal persantine thallium stress test. Normal left ventricular systolic function, ejection fraction 50% by echocardiogram a year ago. In addition, she has a history of thoracic aortic aneurysm repair and abdominal aortic aneurysm measuring 4.1 cm by abdominal ultrasound 3 months ago. Patient was brought to the emergency department and admitted with chest pain. Patient describes pain as epigastric pain associated with back pain. She denies unusual shortness of breath and palpitations. Patient denies nausea vomiting and diaphoresis. There was no syncope. Initial labs revealed hypoglycemia, glucose 67. INR of 1.77. Initial troponin is negative. An ECG is atrial fibrillation with a well controlled ventricular rate. Past History Past Medical History: CAD, diabetes, hypertension, other (AAA) Social history: no significant social history Family history: no significant family history Medications and Allergies Allergies Allergy/AdvReac Type Severity Reaction Status Date / Time No Known Allergies Allergy Verified 02/22/18 01:31 Home Medications Medication Instructions Recorded Confirmed Last Taken Type Aspirin [Aspirin BABY CHEW TAB] 81 mg PO QDAY 05/21/14 02/21/19 07/09/14 07:00 History Brinzolamide [Azopt 1%] 1 drop OU Q8HR 05/21/14 02/21/19 07/08/14 History Insulin NPH Hum/Reg Insulin Hm 30 unit SQ QHS 05/21/14 02/21/19 07/08/14 History [HumuLIN 70-30 Vial] Insulin NPH Hum/Reg Insulin Hm 36 unit SQ QAM 05/21/14 02/21/19 07/08/14 History [HumuLIN 70-30 Vial] Latanoprost 0.005% 1 drop OP QPM 05/21/14 02/21/19 07/08/14 History Lisinopril 10 mg PO DAILY 05/21/14 02/21/19 07/08/14 History Warfarin [Coumadin] 5 mg PO QDAY 05/21/14 02/21/19 07/03/14 History Metoprolol Xl [Metoprolol 100 mg PO QDAY #30 tablet 05/22/14 02/21/19 07/09/14 07:00 Rx SUCCINATE ER TAB] Digoxin 125 mcg PO QDAY 06/21/14 02/21/19 07/09/14 History 0700 Pravastatin [Pravachol] 40 mg PO QDAY 06/21/14 02/21/19 07/08/14 History HYDROcodone/APAP 5-325 [Wideman 1 each PO Q6H PRN #10 tablet 07/10/14 02/21/19 Unknown Rx 5-325 mg TAB] traMADol [Ultram 50 MG tab] 50 mg PO Q6HR PRN #14 tablet 10/08/17 02/21/19 Unknown Rx Lasix TAB 20 mg PO DAILY 02/22/18 02/21/19 Unknown History Dorzolamide HCl/Timolol Maleat 1 drop OS BID 02/21/19 02/21/19 Unknown History [Dorzolamide-Timolol Eye Drops] Active Meds: Active Medications Acetaminophen (Tylenol) 650 mg PO Q4H PRN PRN Reason: Pain MILD(1-3)/Fever >100.5/HOGAN Acetaminophen/Hydrocodone Bitart (Wideman 5/325) 1 each PO Q6H PRN PRN Reason: Moderate Pain Aspirin (Baby Aspirin) 81 mg PO QDAY [facility] Last Admin: 02/21/19 09:56 Dose: 81 mg Documented by: Dextrose (D50w (25gm) Syringe) 50 ml IV PRN PRN PRN Reason: Hypoglycemia Digoxin (Lanoxin) 0.125 mg PO QDAY@1700 [facility] Furosemide (Lasix) 20 mg PO DAILY [facility] Last Admin: 02/21/19 09:55 Dose: 20 mg Documented by: Hydralazine HCl (Apresoline) 5 mg IV Q6HR PRN PRN Reason: FOR SBP > target Insulin Human Isoph/Insulin Regular (Humulin 70/30) 30 unit SUB-Q QHS [facility] Insulin Human Isoph/Insulin Regular (Humulin 70/30) 36 unit SUB-Q QAMDIAB [facility] Insulin Human Lispro (Humalog) 0 unit SUB-Q ACHS [facility]; Protocol Last Admin: 02/21/19 08:19 Dose: Not Given Documented by: Latanoprost (Latanoprost 0.005%) 1 drops OD QPM [facility] Lisinopril (Zestril) 10 mg PO DAILY [facility] Last Admin: 02/21/19 09:56 Dose: 10 mg Documented by: Metoprolol Succinate (Toprol Xl) 100 mg PO QDAY [facility] Last Admin: 02/21/19 09:55 Dose: 100 mg Documented by: Miscellaneous Medication (Brinzolamide [Azopt 1%]) 1 drop OU Q8HR [facility] Ondansetron HCl (Zofran) 4 mg IV Q8H PRN PRN Reason: Nausea And Vomiting Pravastatin Sodium (Pravachol) 40 mg PO QDAY [facility] Last Admin: 02/21/19 09:56 Dose: 40 mg Documented by: Sodium Chloride (Sodium Chloride Flush Syringe 10 Ml) 10 ml IV BID TIM Sodium Chloride (Sodium Chloride Flush Syringe 10 Ml) 10 ml IV PRN PRN PRN Reason: LINE FLUSH Warfarin Sodium (Coumadin) 5 mg PO QDAY@1700 [facility]; Protocol Physical Examination Vital Signs Pulse Resp Pulse Ox 75 17 99 02/21/19 01:35 02/21/19 01:35 02/21/19 01:35 General appearance: no acute distress HEENT: Positive: PERRL Neck: Positive: trachea midline Cardiac: Positive: irregularly irregular Lungs: Positive: Decreased Breath Sounds Neuro: Positive: Grossly Intact Extremities: Absent: edema Results 02/22/19 03:34 02/22/19 03:34 Cardiac Enzymes 02/21/19 Range/Units 01:35 AST 16 (5-40) units/L Coagulation 02/21/19 02/21/19 Range/Units 01:35 05:54 PT 20.2 H (12.2-14.9) Sec. INR 1.77 H (0.87-1.13) APTT 26.4 30.5 (24.2-36.6) Sec. Lipids 02/21/19 Range/Units 02:59 Triglycerides 173 H (2-149) mg/dL Cholesterol 176 (50-199) mg/dL HDL Cholesterol 47 (40-59) mg/dL Cholesterol/HDL Ratio 3.74 % CBC 02/21/19 02/21/19 Range/Units 01:31 03:05 WBC 5.7 7.5 (4.5-11.0) K/mm3 RBC 4.55 4.62 (3.65-5.03) M/mm3 Hgb 12.4 12.5 (10.1-14.3) gm/dl Hct 38.0 39.0 (30.3-42.9) % Plt Count 142 152 (140-440) K/mm3 Lymph # 1.7 1.8 (1.2-5.4) K/mm3 Terry # 0.6 0.7 (0.0-0.8) K/mm3 Eos # 0.2 0.1 (0.0-0.4) K/mm3 Baso # 0.1 0.1 (0.0-0.1) K/mm3 Comprehensive Metabolic Panel 02/21/19 02/21/19 Range/Units 01:35 03:05 Sodium 138 135 L (137-145) mmol/L Potassium 4.7 5.2 H (3.6-5.0) mmol/L Chloride 103.2 101.5 (98-107) mmol/L Carbon Dioxide 26 26 (22-30) mmol/L BUN 18 H 18 H (7-17) mg/dL Creatinine 1.1 1.2 (0.7-1.2) mg/dL Glucose 68 137 H (65-100) mg/dL Calcium 10.4 H 10.1 (8.4-10.2) mg/dL AST 16 (5-40) units/L ALT 13 (7-56) units/L Alkaline Phosphatase 65 (35-129) units/L Total Protein 7.1 (6.3-8.2) g/dL Albumin 3.8 L (3.9-5) g/dL Assessment and Plan Chest pain Permanent Afib on warfarin as an outpatient; INR 1.77 on presentation Hx of CAD with prior CABG Hx of thoracic aorta aneurysm repair Hx of abdominal aortic aneurysm measuring 4.1 cm by ultrasound 11/2018 Pacemaker implant Hypertension Hyperlipidemia Plan: Persantine thallium stress test for further cardiac evaluation. <RAJENDRA CONDON - Last Filed: 02/28/19 08:50> Physical Examination Vital Signs Pulse Resp Pulse Ox 75 17 99 02/21/19 01:35 02/21/19 01:35 02/21/19 01:35 Results 02/22/19 03:34 02/22/19 03:34 Assessment and Plan I have seen and evaluated the patient and agree with the assessment and plan.
[2019-02-21] MEDS ORDERED: LANOXIN PO SCH (17:00)
[2019-02-21] MEDS ORDERED: COUMADIN PO SCH (17:00)
[2019-02-21] MEDS ORDERED: LATANOPROST 0.005% OD SCH (18:00)
[2019-02-21] MEDS: SODIUM CHLORIDE FLUSH SYRINGE 10 ML IV SCH ×2 (18:27→21:33)
[2019-02-21] MEDS: COSOPT OS SCH (21:32)
[2019-02-22 04:31] LABS: Basophils # (Auto) 0.1 K/mm3 (0.0-0.1); Eosinophils # (Auto) 0.1 K/mm3 (0.0-0.4); Eosinophils % (Auto) 1.9 % (0.0-4.3); Hematocrit 39.1 % (30.3-42.9); Hemoglobin 13.1 gm/dl (10.1-14.3); Lymphocytes # (Auto) 2.7 K/mm3 (1.2-5.4); Lymphocytes % (Auto) 36.1 % (13.4-35.0); Mean Corpuscular HGB Conc 34 % (30-34); Mean Corpuscular Volume 82 fl (79-97); Monocytes # (Auto) 0.8 K/mm3 (0.0-0.8); Monocytes % (Auto) 10.4 % (0.0-7.3); Platelet Count 165 K/mm3 (140-440); Red Blood Count 4.76 M/mm3 (3.65-5.03); Red Cell Distribution Width 16.6 % (13.2-15.2)
[2019-02-22 04:42] LABS: INR 2.18 (0.87-1.13)
[2019-02-22 04:54] LABS: Calcium 9.9 mg/dL (8.4-10.2)
--- NOTE | 2019-02-22 09:23 | Discharge Summary ---
Providers - Providers Date of Admission: 02/21/19 02:46 Attending physician: CLEMENTE WALKER MD 02/21/19 Consult to Cardiac Rehabilitation [CONS] Routine Reason For Exam: Phase I 02/21/19 06:28 Consult to Physician [CONS] Routine Comment: Consulting Provider: MARIAM PADILLA Physician Instructions: Reason For Exam: cp Primary care physician: LOREN SANTANA Hospitalization Condition: Stable Hospital course: 82F who has hx Chronic A. fib, CAD with history of CABG, thoracic aorta aneurysm, AAA, pacemaker in situ, hypertension, hyperlipidemia who presented to the hospital with chest pain. ACS was ruled out, as well as have a stress test that was negative, cardiology agreed with the plan of care chest pain; due to costochondritis -chronic afib cad sp cabg Disposition: DC-01 TO HOME OR SELFCARE Time spent for discharge: 33 mins Core Measure Documentation - Palliative Care Palliative Care/ Comfort Measures: Not Applicable - Core Measures Any of the following diagnoses?: none Exam - Constitutional Vitals: Temp Pulse Resp BP Pulse Ox 97.7 F 91 H 16 123/65 97 02/22/19 07:53 02/22/19 07:53 02/22/19 07:53 02/22/19 07:53 02/22/19 07:53 General appearance: Present: no acute distress, well-nourished - EENT Eyes: Present: PERRL ENT: hearing intact, clear oral mucosa - Neck Neck: Present: supple, normal ROM - Respiratory Respiratory effort: normal Respiratory: bilateral: CTA - Cardiovascular Heart Sounds: Present: S1 & S2. Absent: rub, click - Extremities Extremities: pulses symmetrical, No edema Peripheral Pulses: within normal limits - Abdominal General gastrointestinal: Present: soft, non-tender, non-distended, normal bowel sounds Female genitourinary: Present: normal - Integumentary Integumentary: Present: clear, warm, dry - Musculoskeletal Musculoskeletal: gait normal, strength equal bilaterally - Psychiatric Psychiatric: appropriate mood/affect, intact judgment & insight - Neurologic Neurologic: CNII-XII intact, moves all extremities Plan Follow up with: GAVIN PITT MD [Staff Physician] - 3-5 Days Forms: Warfarin Discharge Instruction
[2019-02-22] MEDS: HumaLOG SUB-Q SCH ×2 (09:37→12:37)
[2019-02-22] MEDS ORDERED: ECOTRIN PO SCH (10:00)
[2019-02-22] MEDS ORDERED: LEXISCAN IV ONE (11:14)
[2019-02-22] MEDS: TOPROL XL PO SCH ×2 (12:37→14:22)
[2019-02-22] MEDS: ZESTRIL PO SCH (12:38)
[2019-02-22] MEDS: BABY ASPIRIN PO SCH ×2 (12:39→14:23)
[2019-02-22] MEDS: SODIUM CHLORIDE FLUSH SYRINGE 10 ML IV SCH (12:39)
[2019-02-22] MEDS: PRAVACHOL PO SCH ×2 (12:39→14:22)
[2019-02-22] MEDS: LASIX PO SCH ×2 (12:39→14:23)
[2019-02-22] MEDS: COSOPT OS SCH ×2 (12:39→14:22)
[2019-02-22 14:20] VITALS: BP 133/66
--- NOTE | 2019-02-23 04:48 | Treadmill Report ---
THALLIUM STRESS TEST LEFT VENTRICLE: Left ventricular chamber size is within normal spread. Perfusion study demonstrates homogeneous uptake of the tracer in all segments, no significant defects identified. There is evidence of mild breast attenuation artifact. Gated study was not available due to the patient's irregular heartbeat with atrial fibrillation. CONCLUSION: Normal myocardial perfusion study. Left ventricular function assessment if indicated, recommend echocardiography. JOB# [id number] CA/NTS
== END 2019-02-22 16:15 | disposition home or self-care (01) ==
LOC: ED 01:06 → 4A 02:46
PROVIDERS: ADMIT Internal Medicine; ATTEND Internal Medicine
DX: R10.13 Epigastric pain (principal); R07.89 Other chest pain; E11.9 Type 2 diabetes mellitus without complications; I25.10 Atherosclerotic heart disease of native coronary artery without angina pectoris; I11.0 Hypertensive heart disease with heart failure; I50.9 Heart failure, unspecified; I48.91 Unspecified atrial fibrillation; R79.1 Abnormal coagulation profile; R94.31 Abnormal electrocardiogram [ECG] [EKG]; E87.5 Hyperkalemia; Z79.899 Other long term (current) drug therapy; Z95.828 Presence of other vascular implants and grafts; Z95.0 Presence of cardiac pacemaker
CPT/HCPCS: 36415; 71045; 74176; 78452; 80048; 80053; 80061; 82962; 83036; 83690; 84484; 85025; 85610; 85730; 93005; 93010; 93017; 96372; 99284; A9270; A9502; G0378; J1650; J2785; J1815

== ENCOUNTER 2020-06-27 00:20 | Observation (INO) | payer MEDICARE ==
[2020-06-27] MEDS ORDERED: NITROGLYCERIN 0.4 MG TAB SUBL SL ONE (00:42)
--- NOTE | 2020-06-27 01:23 | XRay Report ---
CHEST 1 VIEW INDICATION / CLINICAL INFORMATION: chest pain. COMPARISON: 02/21/2019 FINDINGS: SUPPORT DEVICES: None. HEART / MEDIASTINUM: Endovascular graft is present in the descending thoracic aorta unchanged in appe arance and location. Sternotomy. Cardiac silhouette size remains borderline enlarged. LUNGS / PLEURA: Borderline interstitial pulmonary edema. No suggestion for pneumonia or large pleural effusion. No pneumothorax. ADDITIONAL FINDINGS: No significant additional findings. IMPRESSION: 1. Borderline interstitial pulmonary edema. Probable very small bilateral pleural effusions. Signer Name: Mayra Becker MD Signed: 06/27/2020 1:19 AM Workstation Name: [id number]
[2020-06-27 01:26] LABS: Basophils % (Auto) 0.8 % (0.0-1.8); Eosinophils # (Auto) 0.1 K/mm3 (0.0-0.4); Eosinophils % (Auto) 1.8 % (0.0-4.3); Hematocrit 42.3 % (30.3-42.9); Hemoglobin 13.9 gm/dl (10.1-14.3); Lymphocytes # (Auto) 2.2 K/mm3 (1.2-5.4); Lymphocytes % (Auto) 35.7 % (13.4-35.0); Mean Corpuscular HGB Conc 33 % (30-34); Mean Corpuscular Volume 87 fl (79-97); Monocytes # (Auto) 0.5 K/mm3 (0.0-0.8); Monocytes % (Auto) 8.1 % (0.0-7.3); Platelet Count 155 K/mm3 (140-440); Red Blood Count 4.87 M/mm3 (3.65-5.03); Red Cell Distribution Width 15.3 % (13.2-15.2)
[2020-06-27 01:35] LABS: Alanine Aminotransferase 12 units/L (7-56); Albumin 3.9 g/dL (3.9-5); BUN/Creatinine Ratio 14; Blood Urea Nitrogen 18 mg/dL (7-17); Calcium 11.1 mg/dL (8.4-10.2); Hemolysis Index 5
[2020-06-27 02:04] LABS: Partial Thromboplastin Time 29.2 Sec. (24.2-36.6)
[2020-06-27] MEDS ORDERED: DIGOXIN 0.5 MG/2 ML INJ IV ONE (02:05)
[2020-06-27] MEDS ORDERED: FUROSEMIDE 20 MG/2 ML INJ IV ONE (02:05)
--- NOTE | 2020-06-27 02:12 | Emergency Department Report ---
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 Patient is anticoagulated with warfarin. Routine pacemaker interrogations have revealed normal device function. Patient has a history of coronary artery disease with remote bypass grafting. In 2012 she had a normal persantine thallium stress test. Normal left ventricular systolic function, ejection fraction 50% by echocardiogram a year ago. In addition, she has a history of thoracic aortic aneurysm repair and abdominal aortic aneurysm measuring 4.1 cm by abdominal u ltrasound a year ago Patient is presenting with chest pain. States tight sensation across the left chest with shortness of breath. She states she did have hot sensation when this was occurring but no actual diaphoresis. Denies nausea vomiting or epigastric discomfort. States there is been no cough cold congestion fevers or chills. Patient states initially the pain was a 7 out of 10 but is now down to a 4 out of 10.. - Related Data Home Medications Medication Instructions Recorded Confirmed Last Taken Aspirin [Aspirin BABY CHEW TAB] 81 mg PO QDAY 05/21/14 02/21/19 07/09/14 07:00 Brinzolamide [Azopt 1%] 1 drop OU Q8HR 05/21/14 02/21/19 07/08/14 Insulin NPH Hum/Reg Insulin Hm 30 unit SQ QHS 05/21/14 02/21/19 07/08/14 [HumuLIN 70-30 Vial] Insulin NPH Hum/Reg Insulin Hm 36 unit SQ QAM 05/21/14 02/21/19 07/08/14 [HumuLIN 70-30 Vial] Latanoprost 0.005% 1 drop OP QPM 05/21/14 02/21/19 07/08/14 Warfarin [Coumadin] 5 mg PO QDAY 05/21/14 02/21/19 07/03/14 lisinopriL [Lisinopril] 10 mg PO DAILY 05/21/14 02/21/19 07/08/14 Digoxin 125 mcg PO QDAY 06/21/14 02/21/19 07/09/14 0700 Pravastatin [Pravachol] 40 mg PO QDAY 06/21/14 02/21/19 07/08/14 Lasix TAB 20 mg PO DAILY 02/22/18 02/21/19 Unknown Dorzolamide HCl/Timolol Maleat 1 drop OS BID 02/21/19 02/21/19 Unknown [Dorzolamide-Timolol Eye Drops] Previous Rx's Medication Instructions Recorded Last Taken Type Metoprolol Xl [Metoprolol 100 mg PO QDAY #30 tablet 05/22/14 07/09/14 07:00 Rx SUCCINATE ER TAB] HYDROcodone/APAP 5-325 [Kasson 1 each PO Q6H PRN #10 tablet 07/10/14 Unknown Rx 5-325 mg TAB] traMADoL [Ultram 50 MG tab] 50 mg PO Q6HR PRN #14 tablet 10/08/17 Unknown Rx Allergies Allergy/AdvReac Type Severity Reaction Status Date / Time No Known Allergies Allergy Verified 02/22/18 01:31 Heart Score - HEART Score History: Moderately suspicious EKG: Non-specific Age: > 65 Risk factors: > 3 risk factors or hx of atherosclerotic disease Troponin: < normal limit HEART Score: 6 ED Review of Systems ROS: Stated complaint: CHEST TIGHTNESS Other details as noted in HPI Comment: All other systems reviewed and negative ED Past Medical Hx - Past Medical History Previous Medical History?: Yes Hx Hypertension: Yes Hx Congestive Heart Failure: Yes (new diagnosis 2 weeks ago) Hx Diabetes: Yes Hx Arthritis: Yes Hx HIV: No Additional medical history: afib, hx of AAA 2 (first repaired in 2007) second last measured at approximately 5.5 cm - Surgical History Past Surgical History?: Yes Hx Coronary Stent: Yes Hx Open Heart Surgery: Yes Hx Pacemaker: Yes (AICD) Additional Surgical History: 2007 CABG. First AAA repair 2007 - Social History Smoking Status: Never Smoker Substance Use Type: None - Medications Home Medications: Home Medications Medication Instructions Recorded Confirmed Last Taken Type Aspirin [Aspirin BABY CHEW TAB] 81 mg PO QDAY 05/21/14 02/21/19 07/09/14 07:00 History Brinzolamide [Azopt 1%] 1 drop OU Q8HR 05/21/14 02/21/19 07/08/14 History Insulin NPH Hum/Reg Insulin Hm 30 unit SQ QHS 05/21/14 02/21/19 07/08/14 History [HumuLIN 70-30 Vial] Insulin NPH Hum/Reg Insulin Hm 36 unit SQ QAM 05/21/14 02/21/19 07/08/14 History [HumuLIN 70-30 Vial] Latanoprost 0.005% 1 drop OP QPM 05/21/14 02/21/19 07/08/14 History Warfarin [Coumadin] 5 mg PO QDAY 05/21/14 02/21/19 07/03/14 History lisinopriL [Lisinopril] 10 mg PO DAILY 05/21/14 02/21/19 07/08/14 History Metoprolol Xl [Metoprolol 100 mg PO QDAY #30 tablet 05/22/14 02/21/19 07/09/14 07:00 Rx SUCCINATE ER TAB] Digoxin 125 mcg PO QDAY 06/21/14 02/21/19 07/09/14 History 0700 Pravastatin [Pravachol] 40 mg PO QDAY 06/21/14 02/21/19 07/08/14 History HYDROcodone/APAP 5-325 [Kasson 1 each PO Q6H PRN #10 tablet 07/10/14 02/21/19 Unknown Rx 5-325 mg TAB] traMADoL [Ultram 50 MG tab] 50 mg PO Q6HR PRN #14 tablet 10/08/17 02/21/19 Unknown Rx Lasix TAB 20 mg PO DAILY 02/22/18 02/21/19 Unknown History Dorzolamide HCl/Timolol Maleat 1 drop OS BID 02/21/19 02/21/19 Unknown History [Dorzolamide-Timolol Eye Drops] ED Physical Exam - General Limitations: No Limitations General appearance: alert, in no apparent distress - Head Head exam: Present: atraumatic, normocephalic - Eye Eye exam: Present: normal appearance - ENT ENT exam: Present: mucous membranes moist - Neck Neck exam: Present: normal inspection - Respiratory Respiratory exam: Present: normal lung sounds bilaterally. Absent: respiratory distress, wheezes, rales, rhonchi - Cardiovascular Cardiovascular Exam: Present: regular rate, irregular rhythm, normal heart sounds. Absent: systolic murmur, diastolic murmur, rubs, gallop - GI/Abdominal GI/Abdominal exam: Present: soft, normal bowel sounds. Absent: distended, tenderness, guarding, rebound - Extremities Exam Extremities exam: Present: normal inspection - Back Exam Back exam: Present: normal inspection - Neurological Exam Neurological exam: Present: alert, oriented X3 - Psychiatric Psychiatric exam: Present: normal affect, normal mood - Skin Skin exam: Present: warm, dry, intact, normal color. Absent: rash ED Course Vital Signs 06/27/20 06/27/20 00:40 01:06 Temperature 97.6 F Pulse Rate 87 76 Respiratory 18 Rate Blood Pressure 147/95 Blood Pressure 152/92 [Left] O2 Sat by Pulse 98 Oximetry - Reevaluation(s) Reevaluation #1: 06/27/20 02:07 Pain was relieved with 1 nitroglycerin CUAUHTEMOC score - Cuauhtemoc Score Age > 65: (1) Yes Aspirin use within the Past 7 Days: (0) No 3 or more CAD Risk Factors: (1) Yes 2 or more Angina events in past 24 hrs: (1) Yes Known CAD with more than 50% Stenosis: (0) No Elevated Cardiac Markers: (0) No ST Deviation Greater than 0.5mm: (0) No CUAUHTEMOC Score: 3 ED Medical Decision Making - Lab Data Result diagrams: 06/27/20 00:50 06/27/20 00:50 Lab Results 06/27/20 06/27/20 06/27/20 Range/Units 00:50 00:50 00:50 WBC 6.0 (4.5-11.0) K/mm3 RBC 4.87 (3.65-5.03) M/mm3 Hgb 13.9 (10.1-14.3) gm/dl Hct 42.3 (30.3-42.9) % MCV 87 (79-97) fl MCH 29 (28-32) pg MCHC 33 (30-34) % RDW 15.3 H (13.2-15.2) % Plt Count 155 (140-440) K/mm3 Lymph % (Auto) 35.7 H (13.4-35.0) % Hamilton % (Auto) 8.1 H (0.0-7.3) % Eos % (Auto) 1.8 (0.0-4.3) % Baso % (Auto) 0.8 (0.0-1.8) % Lymph # (Auto) 2.2 (1.2-5.4) K/mm3 Hamilton # (Auto) 0.5 (0.0-0.8) K/mm3 Eos # (Auto) 0.1 (0.0-0.4) K/mm3 Baso # (Auto) 0.0 (0.0-0.1) K/mm3 Seg Neutrophils % 53.6 (40.0-70.0) % Seg Neutrophils # 3.2 (1.8-7.7) K/mm3 PT (12.2-14.9) Sec. INR (0.87-1.13) APTT (24.2-36.6) Sec. Sodium 140 (137-145) mmol/L Potassium 5.5 H (3.6-5.0) mmol/L Chloride 102.7 (98-107) mmol/L Carbon Dioxide 29 (22-30) mmol/L Anion Gap 14 mmol/L BUN 18 H (7-17) mg/dL Creatinine 1.3 H (0.6-1.2) mg/dL Estimated GFR 47 ml/min BUN/Creatinine Ratio 14 % Glucose 118 H (65-100) mg/dL Calcium 11.1 H (8.4-10.2) mg/dL Total Bilirubin 0.20 (0.1-1.2) mg/dL AST 15 (5-40) units/L ALT 12 (7-56) units/L Alkaline Phosphatase 63 (35-129) units/L Troponin T < 0.010 (0.00-0.029) ng/mL Total Protein 6.9 (6.3-8.2) g/dL Albumin 3.9 (3.9-5) g/dL Albumin/Globulin Ratio 1.3 % Digoxin 0.7 L (0.9-2.0) ng/mL 06/27/20 Range/Units 00:50 WBC (4.5-11.0) K/mm3 RBC (3.65-5.03) M/mm3 Hgb (10.1-14.3) gm/dl Hct (30.3-42.9) % MCV (79-97) fl MCH (28-32) pg MCHC (30-34) % RDW (13.2-15.2) % Plt Count (140-440) K/mm3 Lymph % (Auto) (13.4-35.0) % Hamilton % (Auto) (0.0-7.3) % Eos % (Auto) (0.0-4.3) % Baso % (Auto) (0.0-1.8) % Lymph # (Auto) (1.2-5.4) K/mm3 Hamilton # (Auto) (0.0-0.8) K/mm3 Eos # (Auto) (0.0-0.4) K/mm3 Baso # (Auto) (0.0-0.1) K/mm3 Seg Neutrophils % (40.0-70.0) % Seg Neutrophils # (1.8-7.7) K/mm3 PT 23.1 H (12.2-14.9) Sec. INR 2.00 H (0.87-1.13) APTT 29.2 (24.2-36.6) Sec. Sodium (137-145) mmol/L Potassium (3.6-5.0) mmol/L Chloride (98-107) mmol/L Carbon Dioxide (22-30) mmol/L Anion Gap mmol/L BUN (7-17) mg/dL Creatinine (0.6-1.2) mg/dL Estimated GFR ml/min BUN/Creatinine Ratio % Glucose (65-100) mg/dL Calcium (8.4-10.2) mg/dL Total Bilirubin (0.1-1.2) mg/dL AST (5-40) units/L ALT (7-56) units/L Alkaline Phosphatase (35-129) units/L Troponin T (0.00-0.029) ng/mL Total Protein (6.3-8.2) g/dL Albumin (3.9-5) g/dL Albumin/Globulin Ratio % Digoxin (0.9-2.0) ng/mL - EKG Data -: EKG Interpreted by Pa - EKG Data 06/27/20 02:09 EKG shows atrial fibrillation with a rate of 97. The axis is normal intervals are normal. Does appear to be some LVH. She has T wave inversions in 1 and aVL. T wave is also inverted in V2 through V6. There is poor R wave progression. Appears to be [address] depression in lead II - Radiology Data [facility] [address] [place] [address] XRay Report Signed Patient: JOSEFA MOTA MR#: [id number] : 04/19/1936 Acct:[id number] Age/Sex: 84 / F ADM Date: 06/27/20 Loc: ED Attending Dr: Ordering Physician: GEORGE OREILLY MD Date of Service: 06/27/20 Procedure(s): XR chest 1V ap Accession Number(s): [id number] cc: GEORGE OREILLY MD Fluoro Time In Minutes: CHEST 1 VIEW INDICATION / CLINICAL INFORMATION: chest pain. COMPARISON: 02/21/2019 FINDINGS: SUPPORT DEVICES: None. HEART / MEDIASTINUM: Endovascular graft is present in the descending thoracic aorta unchanged in appearance and location. Sternotomy. Cardiac silhouette size remains borderline enlarged. LUNGS / PLEURA: Borderline interstitial pulmonary edema. No suggestion for pneumonia or large pleural effusion. No pneumothorax. ADDITIONAL FINDINGS: No significant additional findings. IMPRESSION: 1. Borderline interstitial pulmonary edema. Probable very small bilateral pleural effusions. Signer Name: Mayra Becker MD Signed: 06/27/2020 1:19 AM Workstation Name: [email or web address] - Medical Decision Making Patient is 84-year-old F [place] female with chest pain. She also has some shortness of breath. Patient's vital signs within normal limits chest x-ray does show some mild pulmonary edema BNP was added and she was given some Lasix. After 1 nitro glycerin the patient's pain is resolved. Patient will be admitted to the hospitalist service secondary to her having a heart score of 6. Critical Care Time: Yes (30) Critical care attestation.: If time is entered above; I have spent that time in minutes in the direct care of this critically ill patient, excluding procedure time. ED Disposition Clinical Impression: Acute chest pain, CAD (coronary artery disease), IDDM (insulin dependent diabetes mellitus), Pulmonary edema Disposition: OP ADMIT IP TO THIS HOSP Is pt being admited?: Yes Does the pt Need Aspirin: No Condition: Stable Instructions: Chest Pain (ED), Diabetes Mellitus Type 2 in Adults (ED), Pulmonary Edema (ED) Time of Disposition: 02:14
[2020-06-27] MEDS ORDERED: NITROGLYCERIN 0.4 MG TAB SUBL SL PRN (02:35)
[2020-06-27] MEDS ORDERED: MAGNESIUM HYDROXIDE (MOM) ORAL LIQD UDC PO PRN (02:35)
[2020-06-27] MEDS ORDERED: MORPHINE 2 MG/1 ML INJ IV PRN (02:35)
[2020-06-27] MEDS ORDERED: ACETAMINOPHEN 325 MG TAB PO PRN (02:35)
[2020-06-27] MEDS ORDERED: ONDANSETRON 4 MG/2 ML INJ IV PRN (02:35)
[2020-06-27] MEDS ORDERED: DEXTROSE 50% IN WATER (25GM) 50 ML SYRINGE IV PRN (02:35)
--- NOTE | 2020-06-27 02:48 | History and Physical Report ---
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 She had associated shortness of breath but denies any diaphoresis, no headache or dizziness, no nausea or vomiting and no abdominal pain. On a scale of 10 pain was about 7/10 in severity but took some sublingual nitroglycerin with improvement of pain to about 4/10. No known exacerbating fac tor for the chest pain. Patient had a stress test in 2012 which was within normal limits. Echocard iogram about a year ago also showed ejection fraction of 50%. She has had a history of abdominal aortic aneurysm repair in 2007. Abdominal aortic aneurysm measures about 4.1 cm on ultrasound about a year ago. Work-up in the emergency room today showed nonspecific changes on the EKG, chest x-ray showed some mild pulmonary edema and troponin was within normal limits. Patient is being admitted for evaluation of her chest pain. Past History Past Medical History: arthritis, CAD, diabetes, heart failure, hypertension, other (glaucoma) Past Surgical History: CABG, Other (AICD placement in 2007,AAA repair in 2007) Social history: no significant social history Family history: no significant family history Medications and Allergies Allergies Allergy/AdvReac Type Severity Reaction Status Date / Time No Known Allergies Allergy Verified 02/22/18 01:31 Home Medications Medication Instructions Recorded Confirmed Last Taken Type Aspirin [Aspirin BABY CHEW TAB] 81 mg PO QDAY 05/21/14 02/21/19 07/09/14 07:00 History Brinzolamide [Azopt 1%] 1 drop OU Q8HR 05/21/14 02/21/19 07/08/14 History Insulin NPH Hum/Reg Insulin Hm 30 unit SQ QHS 05/21/14 02/21/19 07/08/14 History [HumuLIN 70-30 Vial] Insulin NPH Hum/Reg Insulin Hm 36 unit SQ QAM 05/21/14 02/21/19 07/08/14 History [HumuLIN 70-30 Vial] Latanoprost 0.005% 1 drop OP QPM 05/21/14 02/21/19 07/08/14 History Warfarin [Coumadin] 5 mg PO QDAY 05/21/14 02/21/19 07/03/14 History lisinopriL [Lisinopril] 10 mg PO DAILY 05/21/14 02/21/19 07/08/14 History Metoprolol Xl [Metoprolol 100 mg PO QDAY #30 tablet 05/22/14 02/21/19 07/09/14 07:00 Rx SUCCINATE ER TAB] Digoxin 125 mcg PO QDAY 06/21/14 02/21/19 07/09/14 History 0700 Pravastatin [Pravachol] 40 mg PO QDAY 06/21/14 02/21/19 07/08/14 History HYDROcodone/APAP 5-325 [[place] 1 each PO Q6H PRN #10 tablet 07/10/14 02/21/19 Unknown Rx 5-325 mg TAB] traMADoL [Ultram 50 MG tab] 50 mg PO Q6HR PRN #14 tablet 10/08/17 02/21/19 Unknown Rx Lasix TAB 20 mg PO DAILY 02/22/18 02/21/19 Unknown History Dorzolamide HCl/Timolol Maleat 1 drop OS BID 02/21/19 02/21/19 Unknown History [Dorzolamide-Timolol Eye Drops] Active Meds: Active Medications Acetaminophen (Tylenol) 650 mg PO Q6H PRN PRN Reason: Pain, Mild (1-3) Aspirin (Ecotrin) 325 mg PO QDAY TIM Dextrose (D50w (25gm) Syringe) 50 ml IV Q30MIN PRN; Protocol PRN Reason: Hypoglycemia Dextrose (D50w (25gm) Syringe) 50 ml IV Q30MIN PRN; Protocol PRN Reason: Hypoglycemia Insulin Human Lispro (Humalog) 0 unit SUB-Q ACHS TIM; Protocol Magnesium Hydroxide (Milk Of Magnesia) 30 ml PO Q4H PRN PRN Reason: Constipation Morphine Sulfate (Morphine) 2 mg IV Q5MIN PRN PRN Reason: Chest Pain Nitroglycerin (Nitrostat) 0.4 mg SL Q5M PRN PRN Reason: Chest Pain Ondansetron HCl (Zofran) 4 mg IV Q8H PRN PRN Reason: Nausea And Vomiting Sodium Chloride (Sodium Chloride Flush Syringe 10 Ml) 10 ml IV BID TIM Sodium Chloride (Sodium Chloride Flush Syringe 10 Ml) 10 ml IV PRN PRN PRN Reason: LINE FLUSH Sodium Chloride (Sodium Chloride Flush Syringe 10 Ml) 10 ml IV PRN PRN PRN Reason: LINE FLUSH Review of Systems Constitutional: no fever, no chills Ears, nose, mouth and throat: no nasal congestion, no sore throat Cardiovascular: chest pain, no palpitations Respiratory: no cough, no shortness of breath Gastrointestinal: no abdominal pain, no nausea, no vomiting, no diarrhea Genitourinary Female: no pelvic pain, no flank pain, no dysuria, no hematuria Musculoskeletal: no neck pain, no low back pain Integumentary: no rash, no pruritis Neurological: no headaches, no confusion Psychiatric: no anxiety, no depression Exam - Constitutional Vitals: Temp Pulse Resp BP Pulse Ox 97.6 F 101 H 21 134/91 94 06/27/20 00:40 06/27/20 02:35 06/27/20 02:30 06/27/20 02:35 06/27/20 02:30 General appearance: Present: no acute distress, well-nourished - EENT Eyes: Present: PERRL, EOM intact. Absent: scleral icterus ENT: hearing intact, clear oral mucosa, dentition normal - Neck Neck: Present: supple, normal ROM - Respiratory Respiratory effort: normal Respiratory: bilateral: CTA - Cardiovascular Rhythm: irregularly irregular Heart Sounds: Present: S1 & S2. Absent: gallop, systolic murmur, diastolic murmur, rub - Extremities Extremities: no ischemia, pulses intact, pulses symmetrical, No edema, Full ROM Peripheral Pulses: within normal limits - Abdominal General gastrointestinal: Present: soft, non-tender, non-distended, normal bowel sounds. Absent: mass - Integumentary Integumentary: Present: clear, warm, dry. Absent: rash - Musculoskeletal Musculoskeletal: strength equal bilaterally - Psychiatric Psychiatric: appropriate mood/affect, intact judgment & insight, no memory intact, cooperative - Neurologic Neurologic: CNII-XII intact, no focal deficits, moves all extremities HEART Score - HEART Score History: Moderately suspicious EKG: Non-specific Age: > 65 Risk factors: > 3 risk factors or hx of atherosclerotic disease Troponin: Troponin T < 0.010 ng/mL (0.00-0.029) 06/27/20 00:50 Troponin: < normal limit HEART Score: 6 Results - Labs CBC & Chem 7: 06/27/20 00:50 06/27/20 00:50 Labs: Abnormal lab results 06/27/20 06/27/20 06/27/20 Range/Units 00:50 00:50 00:50 RDW 15.3 H (13.2-15.2) % Lymph % (Auto) 35.7 H (13.4-35.0) % [place] % (Auto) 8.1 H (0.0-7.3) % PT (12.2-14.9) Sec. INR (0.87-1.13) Potassium 5.5 H (3.6-5.0) mmol/L BUN 18 H (7-17) mg/dL Creatinine 1.3 H (0.6-1.2) mg/dL Glucose 118 H (65-100) mg/dL Calcium 11.1 H (8.4-10.2) mg/dL Digoxin 0.7 L (0.9-2.0) ng/mL 06/27/20 Range/Units 00:50 RDW (13.2-15.2) % Lymph % (Auto) (13.4-35.0) % [place] % (Auto) (0.0-7.3) % PT 23.1 H (12.2-14.9) Sec. INR 2.00 H (0.87-1.13) Potassium (3.6-5.0) mmol/L BUN (7-17) mg/dL Creatinine (0.6-1.2) mg/dL Glucose (65-100) mg/dL Calcium (8.4-10.2) mg/dL Digoxin (0.9-2.0) ng/mL Assessment and Plan - Patient Problems (1) Acute chest pain Current Visit: Yes Status: Acute Plan to address problem: Patient admitted and placed on telemetry. Will check serial cardiac enzymes. Patient placed on aspirin, sublingual nitroglycerin and IV morphine as needed for chest pain. We will await further evaluation by cardiology. (2) CAD (coronary artery disease) Current Visit: Yes Status: Chronic Plan to address problem: Patient has had history of CABG. She follows up regularly with a field specialist- . (3) IDDM (insulin dependent diabetes mellitus) Current Visit: Yes Status: Chronic Plan to address problem: We will monitor Accu-Cheks. (4) Atrial fibrillation with rapid ventricular response Current Visit: No Status: Acute Plan to address problem: Rate is controlled. We will continue anticoagulation once medications are reconciled. (5) Hyperkalemia Current Visit: Yes Status: Acute Plan to address problem: will give kayexalate. Monitor EKG and potassium levels. (6) Hyperlipidemia Current Visit: No Status: Chronic Plan to address problem: We will monitor lipid profile and continue routine home medication. (7) DVT prophylaxis Current Visit: No Status: Acute Plan to address problem: Patient on anticoagulation. (8) Full code status Current Visit: Yes Status: Acute
[2020-06-27] MEDS ORDERED: SODIUM POLYSTYRENE 15 GM/60 ML ORAL LIQD PO ONE (03:40)
[2020-06-27] MEDS ORDERED: SODIUM POLYSTYRENE 15 GM/60 ML ORAL LIQD ONE (03:54)
[2020-06-27 04:50] LABS: Basophils # (Auto) 0.1 K/mm3 (0.0-0.1); Basophils % (Auto) 1.2 % (0.0-1.8); Eosinophils # (Auto) 0.1 K/mm3 (0.0-0.4); Eosinophils % (Auto) 1.5 % (0.0-4.3); Hematocrit 42.9 % (30.3-42.9); Lymphocytes # (Auto) 2.1 K/mm3 (1.2-5.4); Lymphocytes % (Auto) 30.1 % (13.4-35.0); Mean Corpuscular HGB Conc 33 % (30-34); Mean Corpuscular Volume 86 fl (79-97); Monocytes # (Auto) 0.5 K/mm3 (0.0-0.8); Monocytes % (Auto) 7.3 % (0.0-7.3); Platelet Count 157 K/mm3 (140-440); Red Blood Count 4.97 M/mm3 (3.65-5.03); Red Cell Distribution Width 15.1 % (13.2-15.2)
[2020-06-27 05:10] LABS: Calcium 10.7 mg/dL (8.4-10.2)
[2020-06-27] MEDS ORDERED: traMADol 50 MG TAB PO PRN (08:00)
[2020-06-27] MEDS ORDERED: REGADENOSON 0.4 MG/5 ML INJ IV ONE (08:11)
[2020-06-27] MEDS: INSULIN LISPRO 100 UNIT/ML VIAL 3 mL SUB-Q SCH ×5 (08:12→22:35)
[2020-06-27] MEDS ORDERED: DORZOLAMIDE HCL OS SCH (10:00)
[2020-06-27] MEDS ORDERED: TIMOLOL MALEAT OS SCH (10:00)
[2020-06-27] MEDS ORDERED: NON-FORMULARY EACH (Lasix Tab 20 MG) PO SCH (10:00)
[2020-06-27] MEDS ORDERED: FUROSEMIDE 20 MG TAB PO SCH (10:00)
[2020-06-27] MEDS ORDERED: [UNRECOGNIZED DRUG - OTHER] OS SCH (10:00)
--- NOTE | 2020-06-27 10:51 | Consultation ---
History of Present Illness Consult date: 06/27/20 Consult reason: chest pain History of present illness: The patient is an 84-year-old woman admitted to the hospital with atypical chest pain. She describes left shoulder and neck tightness, which was not exertional, but was persistent and compelled her to come to the emergency room. She was evaluated in the emergency room and referred for admission. Cardiology consultation was requested. Patient has a long and complicated cardiac history. In September 2007, she underwent three-vessel coronary artery bypass for left main coronary disease. A left internal mammary artery graft was placed to the LAD, a saphenous vein graft was connected from the ARMENDARIZ to the second obtuse marginal, and another saphenous vein graft was placed to the right coronary artery. A month later in October 2007, she underwent a complicated vascular graft placement for a symptomatic 6 cm descending thoracic aortic aneurysm. The patient also has chronic atrial fibrillation and sick sinus syndrome, currently on a rate control strategy and chronic oral anticoagulation with warfarin. Her INR is 2.0 on this presentation. For sick sinus, she underwent placement of a dual-chamber pacemaker in May 2014. Most recent cardiac ischemic work-up was in normal thallium stress test in February 2019. 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 On this presentation, the ECG is atrial fibrillation, with reasonably well- controlled ventricular rate, left ventricular hypertrophy with repolarization abnormalities of LVH. Serial cardiac troponin levels are normal. Chest x-ray revealed evidence of prior thoracotomy, indwelling descending aorta stent, dual- chamber pacemaker and mild cardiomegaly. The lung grace are clear with no evidence of infiltrate or interstitial edema. Past History Past Medical History: arthritis, CAD, diabetes, hypertension, other (glaucoma) Past Surgical History: CABG, Other (PM placement in 2013,AAA repair in 2007) Social history: no significant social history Family history: no significant family history Medications and Allergies Allergies Allergy/AdvReac Type Severity Reaction Status Date / Time No Known Allergies Allergy Verified 02/22/18 01:31 Home Medications Medication Instructions Recorded Confirmed Last Taken Type Aspirin [Aspirin BABY CHEW TAB] 81 mg PO QDAY 05/21/14 02/21/19 07/09/14 07:00 History Brinzolamide [Azopt 1%] 1 drop OU Q8HR 05/21/14 02/21/19 07/08/14 History Insulin NPH Hum/Reg Insulin Hm 30 unit SQ QHS 05/21/14 02/21/19 07/08/14 History [HumuLIN 70-30 Vial] Insulin NPH Hum/Reg Insulin Hm 36 unit SQ QAM 05/21/14 02/21/19 07/08/14 History [HumuLIN 70-30 Vial] Latanoprost 0.005% 1 drop OP QPM 05/21/14 02/21/19 07/08/14 History Warfarin [Coumadin] 5 mg PO QDAY 05/21/14 02/21/19 07/03/14 History lisinopriL [Lisinopril] 10 mg PO DAILY 05/21/14 02/21/19 07/08/14 History Metoprolol Xl [Metoprolol 100 mg PO QDAY #30 tablet 05/22/14 02/21/19 07/09/14 07:00 Rx SUCCINATE ER TAB] Digoxin 125 mcg PO QDAY 06/21/14 02/21/19 07/09/14 History 0700 Pravastatin [Pravachol] 40 mg PO QDAY 06/21/14 02/21/19 07/08/14 History HYDROcodone/APAP 5-325 [[place] 1 each PO Q6H PRN #10 tablet 07/10/14 02/21/19 Unknown Rx 5-325 mg TAB] traMADoL [Ultram 50 MG tab] 50 mg PO Q6HR PRN #14 tablet 10/08/17 02/21/19 Unknown Rx Lasix TAB 20 mg PO DAILY 02/22/18 02/21/19 Unknown History Dorzolamide HCl/Timolol Maleat 1 drop OS BID 02/21/19 02/21/19 Unknown History [Dorzolamide-Timolol Eye Drops] Active Meds: Active Medications Acetaminophen (Tylenol) 650 mg PO Q6H PRN PRN Reason: Pain, Mild (1-3) Aspirin (Baby Aspirin) 81 mg PO QDAY TIM Dextrose (D50w (25gm) Syringe) 0 ml IV Q30MIN PRN; Protocol PRN Reason: Hypoglycemia Digoxin (Lanoxin) 0.125 mg PO QDAY TIM Furosemide (Lasix) 20 mg PO QAM TIM Insulin Human Lispro (Humalog) 0 unit SUB-Q ACHS TIM; Protocol Last Admin: 06/27/20 08:12 Dose: Not Given Documented by: Latanoprost (Latanoprost 0.005%) 1 drops OD QPM [facility] Lisinopril (Zestril) 10 mg PO DAILY [facility] Magnesium Hydroxide (Milk Of Magnesia) 30 ml PO Q4H PRN PRN Reason: Constipation Metoprolol Succinate (Metoprolol Xl) 100 mg PO QDAY [facility] Miscellaneous Medication (Dorzolamide Hcl/Timolol Maleat [Dorzolamide-Timolol Eye Drops]) 1 drop OS BID [facility] Miscellaneous Medication (Brinzolamide [Azopt 1%]) 1 drop OU Q8HR [facility] Morphine Sulfate (Morphine) 2 mg IV Q5MIN PRN PRN Reason: Chest Pain Nitroglycerin (Nitrostat) 0.4 mg SL Q5M PRN PRN Reason: Chest Pain Ondansetron HCl (Zofran) 4 mg IV Q8H PRN PRN Reason: Nausea And Vomiting Pravastatin Sodium (Pravachol) 40 mg PO QDAY [facility] Sodium Chloride (Sodium Chloride Flush Syringe 10 Ml) 10 ml IV BID [facility] Sodium Chloride (Sodium Chloride Flush Syringe 10 Ml) 10 ml IV PRN PRN PRN Reason: LINE FLUSH Tramadol HCl (Ultram) 50 mg PO Q6HR PRN PRN Reason: PAIN Warfarin Sodium (Coumadin) 5 mg PO DAILY@1700 TIM; Protocol Review of Systems Cardiovascular: chest pain, no orthopnea, no palpitations, no edema, no syncope, no lightheadedness, no shortness of breath Physical Examination Vital Signs Temp Pulse Resp BP Pulse Ox 97.6 F 87 18 152/92 98 06/27/20 00:40 06/27/20 00:40 06/27/20 00:40 06/27/20 00:40 06/27/20 00:40 General appearance: no acute distress HEENT: Positive: PERRL Neck: Positive: neck supple Cardiac: Positive: irregularly irregular Lungs: Positive: Decreased Breath Sounds Neuro: Positive: Grossly Intact Abdomen: Positive: Soft Female genitourinary: deferred Skin: Positive: Clear Extremities: Absent: edema Results 06/27/20 04:36 06/27/20 04:36 Cardiac Enzymes 06/27/20 Range/Units 00:50 AST 15 (5-40) units/L Coagulation 06/27/20 Range/Units 00:50 PT 23.1 H (12.2-14.9) Sec. INR 2.00 H (0.87-1.13) APTT 29.2 (24.2-36.6) Sec. CBC 06/27/20 06/27/20 Range/Units 00:50 04:36 WBC 6.0 6.9 (4.5-11.0) K/mm3 RBC 4.87 4.97 (3.65-5.03) M/mm3 Hgb 13.9 14.0 (10.1-14.3) gm/dl Hct 42.3 42.9 (30.3-42.9) % Plt Count 155 157 (140-440) K/mm3 Lymph # (Auto) 2.2 2.1 (1.2-5.4) K/mm3 [place] # (Auto) 0.5 0.5 (0.0-0.8) K/mm3 Eos # (Auto) 0.1 0.1 (0.0-0.4) K/mm3 Baso # (Auto) 0.0 0.1 (0.0-0.1) K/mm3 Comprehensive Metabolic Panel 06/27/20 06/27/20 Range/Units 00:50 04:36 Sodium 140 139 (137-145) mmol/L Potassium 5.5 H 4.4 (3.6-5.0) mmol/L Chloride 102.7 102.6 (98-107) mmol/L Carbon Dioxide 29 26 (22-30) mmol/L BUN 18 H 16 (7-17) mg/dL Creatinine 1.3 H 1.2 (0.6-1.2) mg/dL Glucose 118 H 122 H (65-100) mg/dL Calcium 11.1 H 10.7 H (8.4-10.2) mg/dL AST 15 (5-40) units/L ALT 12 (7-56) units/L Alkaline Phosphatase 63 (35-129) units/L Total Protein 6.9 (6.3-8.2) g/dL Albumin 3.9 (3.9-5) g/dL EKG interpretations - Telemetry EKG Rhythm: Atrial Fibrillation Assessment and Plan - Patient Problems (1) Chest pain Current Visit: Yes Status: Acute Plan to address problem: Patient with a history of coronary artery disease status post previous three- vessel coronary artery bypass, thoracic aneurysm repair, chronic atrial fibrillation, who presents with atypical chest pain. We will continue guideline directed medical therapy, following a rule out RI protocol we will proceed with a Lexiscan thallium stress test for further chest pain assessment.
[2020-06-27] MEDS ORDERED: ASPIRIN 81 MG TAB CHEW ONE (11:48)
[2020-06-27] MEDS ORDERED: LISINOPRIL 10 MG TAB ONE (11:49)
[2020-06-27] MEDS ORDERED: FUROSEMIDE 20 MG TAB ONE (11:49)
[2020-06-27] MEDS ORDERED: DIGOXIN 0.25 MG TAB ONE (11:49)
[2020-06-27] MEDS ORDERED: METOPROLOL SUCCINATE XL 100 MG TAB PO ONE (11:49)
[2020-06-27] MEDS: LISINOPRIL 10 MG TAB PO SCH (11:55)
[2020-06-27] MEDS: METOPROLOL SUCCINATE XL 100 MG TAB PO SCH (11:57)
[2020-06-27] MEDS: ASPIRIN 81 MG TAB CHEW PO SCH (12:08)
[2020-06-27] MEDS: DIGOXIN 0.125 MG TAB PO SCH (12:08)
[2020-06-27] MEDS: PRAVASTATIN 40 MG TAB PO SCH (12:23)
[2020-06-27] MEDS ORDERED: BRINZOLAMIDE OU SCH (14:00)
--- NOTE | 2020-06-27 14:51 | Event Note ---
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 Echocardiogram about a year ago also showed ejection fraction of 50%. Work-up in the emergency room showed nonspecific changes on the EKG, chest x-ray showed some mild pulmonary edema and troponin was within normal limits. Cardiology consulted and recommended MPI stress test Continue to monitor the patient with serial cardiac enzyme Plan to DC home if cleared by cardiology and stress test is negative
[2020-06-27] MEDS ORDERED: WARFARIN 5 MG TAB PO SCH (17:00)
[2020-06-27] MEDS ORDERED: LATANOPROST 0.005% OPHTH SOLN 2.5 ML OD SCH (18:00)
[2020-06-27] MEDS: FUROSEMIDE 20 MG/2 ML INJ IV SCH (22:32)
[2020-06-28 05:32] LABS: Basophils # (Auto) 0.1 K/mm3 (0.0-0.1); Basophils % (Auto) 0.7 % (0.0-1.8); Eosinophils # (Auto) 0.1 K/mm3 (0.0-0.4); Eosinophils % (Auto) 0.8 % (0.0-4.3); Hematocrit 41.9 % (30.3-42.9); Hemoglobin 13.8 gm/dl (10.1-14.3); Lymphocytes # (Auto) 2.2 K/mm3 (1.2-5.4); Lymphocytes % (Auto) 29.7 % (13.4-35.0); Mean Corpuscular HGB Conc 33 % (30-34); Mean Corpuscular Volume 87 fl (79-97); Monocytes # (Auto) 0.6 K/mm3 (0.0-0.8); Monocytes % (Auto) 7.8 % (0.0-7.3); Platelet Count 150 K/mm3 (140-440); Red Blood Count 4.85 M/mm3 (3.65-5.03); Red Cell Distribution Width 15.1 % (13.2-15.2)
[2020-06-28 05:42] LABS: INR 2.32 (0.87-1.13)
[2020-06-28] MEDS: FUROSEMIDE 20 MG/2 ML INJ IV SCH (06:17)
[2020-06-28] MEDS: INSULIN LISPRO 100 UNIT/ML VIAL 3 mL SUB-Q SCH ×2 (07:30→12:45)
[2020-06-28 08:24] VITALS: BP 113/63
[2020-06-28] MEDS ORDERED: ASPIRIN EC 325 MG TAB PO SCH (10:00)
--- NOTE | 2020-06-28 10:39 | Progress Note ---
Assessment and Plan - Patient Problems (1) Chest pain Current Visit: Yes Status: Acute (2) CAD (coronary artery disease) Current Visit: Yes Status: Chronic (3) Atrial fibrillation with rapid ventricular response Current Visit: No Status: Acute Subjective Date of service: 06/28/20 Interval history: NO C/O TODAY Objective Vital Signs Temp Pulse Resp BP BP Pulse Ox 06/28/20 08:22 98.4 F 108 H 16 113/63 95 06/28/20 07:00 114 H 06/28/20 03:17 97.9 F 100 H 18 132/71 99 06/27/20 23:34 70 06/27/20 22:58 98.4 F 89 18 120/73 97 06/27/20 21:24 100 06/27/20 20:01 98.5 F 80 19 119/75 97 06/27/20 18:38 98 H 16 124/76 95 06/27/20 17:41 89 15 121/64 97 06/27/20 17:31 92 H 19 121/64 98 06/27/20 17:21 93 H 25 H 121/64 99 06/27/20 17:11 78 24 121/64 97 06/27/20 17:00 76 22 121/64 95 06/27/20 16:45 85 25 H 112/64 97 06/27/20 16:31 95 H 26 H 112/64 97 06/27/20 16:15 74 12 112/64 98 06/27/20 16:01 79 25 H 112/64 94 06/27/20 15:45 79 22 97/55 97 06/27/20 15:31 83 21 97/55 97 06/27/20 15:15 84 19 97/55 96 06/27/20 15:00 83 21 97/55 96 06/27/20 14:45 78 25 H 112/52 97 06/27/20 14:31 96 H 28 H 112/52 98 06/27/20 14:15 99 H 16 112/52 96 06/27/20 14:00 93 H 21 112/52 96 06/27/20 13:45 88 25 H 117/78 99 06/27/20 13:31 87 26 H 117/78 99 06/27/20 13:15 77 23 117/78 96 06/27/20 13:01 94 H 22 117/78 93 06/27/20 12:45 90 21 150/72 99 06/27/20 12:31 112 H 25 H 150/72 99 06/27/20 12:15 114 H 19 150/72 97 06/27/20 12:08 120 H 06/27/20 12:00 107 H 24 130/65 98 06/27/20 11:57 110 H 134/90 06/27/20 11:55 110 H 130/64 06/27/20 11:51 121 H 20 130/65 96 06/27/20 11:41 115 H 24 130/65 97 06/27/20 11:32 116 H 22 78 L - Physical Examination General: No Apparent Distress HEENT: Positive: PERRL Neck: Positive: neck supple, JVD/HJR (MILD) Cardiac: Positive: Irregularly Regular (TRACE EDEMA) Lungs: Positive: clear to auscultation Neuro: Positive: Grossly Intact Abdomen: Positive: Soft Skin: Positive: Clear Extremities: Absent: edema - Labs and Meds Coagulation 06/28/20 Range/Units 04:36 PT 25.8 H (12.2-14.9) Sec. INR 2.32 H (0.87-1.13) CBC 06/28/20 Range/Units 04:36 WBC 7.3 (4.5-11.0) K/mm3 RBC 4.85 (3.65-5.03) M/mm3 Hgb 13.8 (10.1-14.3) gm/dl Hct 41.9 (30.3-42.9) % Plt Count 150 (140-440) K/mm3 Lymph # (Auto) 2.2 (1.2-5.4) K/mm3 [place] # (Auto) 0.6 (0.0-0.8) K/mm3 Eos # (Auto) 0.1 (0.0-0.4) K/mm3 Baso # (Auto) 0.1 (0.0-0.1) K/mm3 Comprehensive Metabolic Panel 06/27/20 06/28/20 Range/Units 14:07 04:36 Sodium 135 L (137-145) mmol/L Potassium 4.1 4.5 (3.6-5.0) mmol/L Chloride 99.9 (98-107) mmol/L Carbon Dioxide 27 (22-30) mmol/L BUN 17 (7-17) mg/dL Creatinine 1.1 (0.6-1.2) mg/dL Glucose 183 H (65-100) mg/dL Calcium 10.0 (8.4-10.2) mg/dL
[2020-06-28] MEDS: ASPIRIN 81 MG TAB CHEW PO SCH (11:29)
[2020-06-28] MEDS: PRAVASTATIN 40 MG TAB PO SCH (11:29)
[2020-06-28] MEDS: LISINOPRIL 10 MG TAB PO SCH (11:30)
[2020-06-28] MEDS: METOPROLOL SUCCINATE XL 100 MG TAB PO SCH (11:30)
[2020-06-28] MEDS: DIGOXIN 0.125 MG TAB PO SCH (11:30)
--- NOTE | 2020-06-28 12:45 | Discharge Summary ---
Providers - Providers Date of Admission: 06/27/20 02:14 Date of discharge: 06/28/20 Attending physician: TARIQ SPICER 06/27/20 Consult to Cardiac Rehabilitation [CONS] Routine Reason For Exam: Phase I 06/27/20 02:35 Consult to Dietitian/Nutrition [CONS] Routine Physician Instructions: Reason For Exam: Reason for Consult: Diet education 06/27/20 02:36 Consult to Cardiology [CONS] Routine Consulting Provider: MARIAM PADILLA Reason For Exam: CHEST PAIN Primary care physician: SUMMER NANNY Hospitalization Condition: Stable Hospital course: Discharge diagnosis: (1) Acute chest pain negative stress test, likely atypical and from GERD (2) CAD (coronary artery disease) Patient has had history of CABG. She follows up regularly with a break off worker- . (3) IDDM (insulin dependent diabetes mellitus), Chronic (4) Atrial fibrillation with rapid ventricular response Rate is controlled. on chronic AC (5) Hyperkalemia s/p kayexalate. resolved (6) Hyperlipidemia, chronic continue routine home medication Disposition: DC-01 TO HOME OR SELFCARE Time spent for discharge: 34 minutes Core Measure Documentation - Palliative Care Palliative Care/ Comfort Measures: Not Applicable - Core Measures Any of the following diagnoses?: history only Exam - Constitutional Vitals: Temp Pulse Resp BP Pulse Ox 98.4 F 114 H 16 113/63 95 06/28/20 08:22 06/28/20 11:30 06/28/20 08:22 06/28/20 08:22 06/28/20 08:22 Plan Activity: fall precautions Weight Bearing Status: Non-Weight Bearing Diet: diabetic Special Instructions: record daily BP diary, record blood sugar diary Additional Instructions: Repeat BMP in one week Follow up with: CHE GONZALEZ MD [Primary Care Provider] - 7 Days SULEMAN GUTIERREZ MD [Staff Physician] - 7 Days
--- NOTE | 2020-06-28 13:01 | Treadmill Report ---
THALLIUM STRESS TEST LEFT VENTRICLE: Left ventricular chamber size is within normal spread. Perfusion study demonstrates homogeneous uptake of the tracer in all segments, no defects identified. The study was not gated due to the presence of chronic atrial fibrillation. CONCLUSION: Normal myocardial perfusion scan. JOB# [id number] CA/NTS
== END 2020-06-28 14:40 | disposition home or self-care (01) ==
LOC: ED 00:20 → 4A 02:14
PROVIDERS: ADMIT Internal Medicine Geriatric Medicine; ATTEND Internal Medicine
DX: R07.89 Other chest pain (principal); I11.0 Hypertensive heart disease with heart failure; I50.9 Heart failure, unspecified; E11.9 Type 2 diabetes mellitus without complications; I48.20 Chronic atrial fibrillation, unspecified; E87.5 Hyperkalemia; I25.10 Atherosclerotic heart disease of native coronary artery without angina pectoris; I71.4 Abdominal aortic aneurysm, without rupture; E78.5 Hyperlipidemia, unspecified; M19.90 Unspecified osteoarthritis, unspecified site; H40.9 Unspecified glaucoma; J81.1 Chronic pulmonary edema; Z95.1 Presence of aortocoronary bypass graft; Z95.810 Presence of automatic (implantable) cardiac defibrillator; Z79.82 Long term (current) use of aspirin; Z79.4 Long term (current) use of insulin; Z79.01 Long term (current) use of anticoagulants; Z98.890 Other specified postprocedural states
CPT/HCPCS: 36415; 71045; 78452; 80048; 80053; 80162; 82962; 83880; 84132; 84484; 85025; 85610; 85730; 93005; 93017; 96374; 96375; 96376; 99291; A9270; A9502; G0378; J1160; J1940; J2785

== ENCOUNTER 2021-09-19 04:30 | Emergency (ER) | payer MEDICARE ==
[2021-09-19 05:33] LABS: Basophils # (Auto) 0.1 K/mm3 (0.0-0.1); Basophils % (Auto) 0.9 % (0.0-1.8); Eosinophils # (Auto) 0.1 K/mm3 (0.0-0.4); Eosinophils % (Auto) 1.8 % (0.0-4.3); Hematocrit 41.8 % (30.3-42.9); Hemoglobin 13.3 gm/dl (10.1-14.3); Lymphocytes # (Auto) 1.5 K/mm3 (1.2-5.4); Mean Corpuscular HGB Conc 32 % (30-34); Mean Corpuscular Volume 86 fl (79-97); Monocytes # (Auto) 0.7 K/mm3 (0.0-0.8); Monocytes % (Auto) 8.9 % (0.0-7.3); Platelet Count 179 K/mm3 (140-440); Red Blood Count 4.89 M/mm3 (3.65-5.03); Red Cell Distribution Width 15.9 % (13.2-15.2)
[2021-09-19 05:35] LABS: Albumin 3.6 g/dL (3.9-5); INR 2.34 (0.87-1.13)
[2021-09-19] MEDS ORDERED: FUROSEMIDE 40 MG/4 ML INJ IV ONE (05:36)
--- NOTE | 2021-09-19 06:19 | Emergency Department Report ---
ED Chest Pain HPI - General Chief Complaint: Chest Pain Stated Complaint: atrial fib Time Seen by Provider: 09/19/21 06:15 Source: EMS, old records reviewed (Negative stress test here 06/2020) Mode of arrival: Stretcher Limitations: No Limitations - History of Present Illness Initial Comments: 85-year-old female with a past medical history of CAD s/p CABG, thoracic aortic aneurysm repair, chronic atrial fibrillation on coumadin and sick sinus syndrome s/p pacemaker placement presents to the hospital with complaints of chest pain and back pain. Patient developed chest tightness while ambulating to and from the bathroom around 2-3 AM with associated shortness of breath and diaphoresis. She denies nausea and vomiting. Patient states for the last 3 to 4 days she has had pain in her posterior thoracic and lumbar area. Patient also concerned that she may be constipated and has taken laxatives resulting in increased intermittent bowel movements. Patient was noted to be in A. fib with RVR upon EMS arrival. Patient states she is mostly compliant with her medication but admits to possibility that poor eyesight might be contributing to her taking her medication correctly. [facility] Dr. Minor Heart rate from the low 100s to 140s during my examination at the bedside Patient's medication include but not limited to metoprolol 150 mg extended release daily, digoxin 125 mcg every other day, and Coumadin 5 mg daily - Related Data Home Medications Medication Instructions Recorded Confirmed Last Taken Aspirin [Aspirin BABY CHEW TAB] 81 mg PO QDAY 05/21/14 09/19/21 07/09/14 07:00 Brinzolamide [Azopt 1%] 1 drop OU Q8HR 05/21/14 09/19/21 07/08/14 Insulin NPH Hum/Reg Insulin Hm 30 unit SQ QHS 05/21/14 09/19/21 07/08/14 [HumuLIN 70-30 Vial] Insulin NPH Hum/Reg Insulin Hm 36 unit SQ QAM 05/21/14 09/19/21 07/08/14 [HumuLIN 70-30 Vial] Latanoprost 0.005% 1 drop OP QPM 05/21/14 09/19/21 07/08/14 Warfarin [Coumadin] 5 mg PO QDAY 05/21/14 09/19/21 07/03/14 Digoxin 125 mcg PO QDAY 06/21/14 09/19/21 07/09/14 0700 Pravastatin [Pravachol] 40 mg PO QDAY 06/21/14 09/19/21 07/08/14 Lasix TAB 20 mg PO DAILY 02/22/18 09/19/21 Unknown Dorzolamide HCl/Timolol Maleat 1 drop OS BID 02/21/19 09/19/21 Unknown [Dorzolamide-Timolol Eye Drops] Ezetimibe 10 mg PO DAILY 09/19/21 09/19/21 Unknown Losartan [Cozaar] 1 tab PO DAILY 09/19/21 09/19/21 Unknown Metoprolol Xl [Metoprolol 150 mg PO QDAY 09/19/21 09/19/21 Unknown SUCCINATE ER TAB] Previous Rx's Medication Instructions Recorded Last Taken Type HYDROcodone/APAP 5-325 [[place] 1 each PO Q6H PRN #10 tablet 07/10/14 Unknown Rx 5-325 mg TAB] traMADoL [Ultram 50 MG tab] 50 mg PO Q6HR PRN #14 tablet 10/08/17 Unknown Rx Allergies Allergy/AdvReac Type Severity Reaction Status Date / Time No Known Allergies Allergy Verified 02/22/18 01:31 Heart Score - HEART Score History: Moderately suspicious EKG: Non-specific Age: > 65 Risk factors: > 3 risk factors or hx of atherosclerotic disease Troponin: < normal limit HEART Score: 6 - EKG Read Time Time EKG Completed: 04:40 EKG Read Time: 04:50 ED Review of Systems ROS: Stated complaint: atrial fib Other details as noted in HPI Comment: All other systems reviewed and negative ED Past Medical Hx - Past Medical History Hx Hypertension: Yes Hx Heart Attack/AMI: Yes Hx Congestive Heart Failure: Yes (new diagnosis 2 weeks ago) Hx Diabetes: Yes Hx Arthritis: Yes Hx HIV: No Additional medical history: afib, hx of thoracic aortic aneurysm repair 2 (first repaired in 2007) second last measured at approximately 5.5 cm - Surgical History Hx Coronary Stent: Yes Hx Open Heart Surgery: Yes Hx Pacemaker: Yes (AICD) Hx Internal Defibrillator: Yes Additional Surgical History: 2007 CABG. First AAA repair 2007 - Social History Smoking Status: Never Smoker Substance Use Type: None - Medications Home Medications: Home Medications Medication Instructions Recorded Confirmed Last Taken Type Aspirin [Aspirin BABY CHEW TAB] 81 mg PO QDAY 05/21/14 09/19/21 07/09/14 07:00 History Brinzolamide [Azopt 1%] 1 drop OU Q8HR 05/21/14 09/19/21 07/08/14 History Insulin NPH Hum/Reg Insulin Hm 30 unit SQ QHS 05/21/14 09/19/21 07/08/14 History [HumuLIN 70-30 Vial] Insulin NPH Hum/Reg Insulin Hm 36 unit SQ QAM 05/21/14 09/19/21 07/08/14 History [HumuLIN 70-30 Vial] Latanoprost 0.005% 1 drop OP QPM 05/21/14 09/19/21 07/08/14 History Warfarin [Coumadin] 5 mg PO QDAY 05/21/14 09/19/21 07/03/14 History Digoxin 125 mcg PO QDAY 06/21/14 09/19/21 07/09/14 History 0700 Pravastatin [Pravachol] 40 mg PO QDAY 06/21/14 09/19/21 07/08/14 History HYDROcodone/APAP 5-325 [[place] 1 each PO Q6H PRN #10 tablet 07/10/14 09/19/21 Unknown Rx 5-325 mg TAB] traMADoL [Ultram 50 MG tab] 50 mg PO Q6HR PRN #14 tablet 10/08/17 09/19/21 Unknown Rx Lasix TAB 20 mg PO DAILY 02/22/18 09/19/21 Unknown History Dorzolamide HCl/Timolol Maleat 1 drop OS BID 02/21/19 09/19/21 Unknown History [Dorzolamide-Timolol Eye Drops] Ezetimibe 10 mg PO DAILY 09/19/21 09/19/21 Unknown History Losartan [Cozaar] 1 tab PO DAILY 09/19/21 09/19/21 Unknown History Metoprolol Xl [Metoprolol 150 mg PO QDAY 09/19/21 09/19/21 Unknown History SUCCINATE ER TAB] ED Physical Exam - General Limitations: No Limitations - ENT ENT exam: Present: TM's normal bilaterally - Other Other exam information: General: No acute distress Head: Atraumatic Eyes: normal appearance ENT: Moist mucous membranes Neck: Normal appearance, no midline tenderness Chest: Clear to auscultation bilaterally, sternotomy scar noted CV: Regular rate and rhythm Abdomen: Soft, normal bowel sounds, nontender, nondistended, no rebound or guarding Back: Normal inspection, and diffuse posterior thoracic and lumbar muscle tenderness to palpation, increased with movement Extremity: Normal inspection, full range of motion, no calf tenderness or leg edema Neuro: Alert O x 3, no facial asymmetry, speech clear, no gross motor sensory deficit Psych: Appropriate behavior Skin: No rash ED Course Vital Signs 09/19/21 09/19/21 09/19/21 05:03 05:15 05:18 Temperature 98.7 F Pulse Rate 109 H Respiratory 31 H 22 Rate Blood Pressure 177/112 O2 Sat by Pulse 97 97 Oximetry 09/19/21 09/19/21 09/19/21 05:30 05:45 05:47 Temperature Pulse Rate 114 H 108 H Respiratory 23 21 Rate Blood Pressure 165/142 163/101 O2 Sat by Pulse 97 99 99 Oximetry 09/19/21 09/19/21 09/19/21 06:01 06:15 06:31 Temperature Pulse Rate 106 H 127 H 125 H Respiratory 24 24 16 Rate Blood Pressure 129/108 145/100 141/96 O2 Sat by Pulse 100 100 99 Oximetry 09/19/21 09/19/21 09/19/21 06:45 07:01 07:13 Temperature Pulse Rate 125 H 129 H 122 H Respiratory 19 25 H Rate Blood Pressure 159/87 159/121 132/70 O2 Sat by Pulse 99 100 Oximetry 09/19/21 09/19/21 09/19/21 07:15 08:01 08:15 Temperature Pulse Rate 111 H 83 100 H Respiratory 25 H 11 L 23 Rate Blood Pressure 132/70 118/101 153/83 O2 Sat by Pulse 100 100 Oximetry 09/19/21 09/19/21 09/19/21 08:31 08:45 09:01 Temperature Pulse Rate 101 H 85 109 H Respiratory 23 23 28 H Rate Blood Pressure 145/89 124/99 130/93 O2 Sat by Pulse 100 99 97 Oximetry 09/19/21 09/19/21 09/19/21 09:15 09:31 09:45 Temperature Pulse Rate 117 H 118 H 95 H Respiratory 27 H 28 H 29 H Rate Blood Pressure 140/96 138/96 149/95 O2 Sat by Pulse 96 96 95 Oximetry 09/19/21 09/19/21 09/19/21 10:01 10:15 10:31 Temperature Pulse Rate 111 H 111 H 120 H Respiratory 21 27 H 26 H Rate Blood Pressure 144/84 143/77 143/91 O2 Sat by Pulse 95 96 96 Oximetry 09/19/21 09/19/21 09/19/21 10:45 11:01 11:15 Temperature Pulse Rate 115 H 113 H 104 H Respiratory 18 25 H 29 H Rate Blood Pressure 147/80 136/81 145/88 O2 Sat by Pulse 97 94 94 Oximetry 09/19/21 09/19/21 09/19/21 11:31 11:45 12:01 Temperature Pulse Rate 97 H 100 H 87 Respiratory 28 H 29 H 29 H Rate Blood Pressure 140/81 149/86 151/80 O2 Sat by Pulse 97 97 95 Oximetry 09/19/21 09/19/21 09/19/21 12:15 12:31 12:45 Temperature Pulse Rate 113 H 109 H 101 H Respiratory 28 H 29 H 25 H Rate Blood Pressure 153/95 130/61 146/84 O2 Sat by Pulse 95 96 94 Oximetry 09/19/21 09/19/21 09/19/21 13:01 13:15 13:31 Temperature Pulse Rate 104 H 94 H 108 H Respiratory 29 H 30 H 29 H Rate Blood Pressure 149/89 141/85 142/79 O2 Sat by Pulse 95 96 93 Oximetry 09/19/21 09/19/21 09/19/21 13:45 14:01 14:15 Temperature Pulse Rate 87 106 H 126 H Respiratory 24 19 22 Rate Blood Pressure 136/71 148/98 151/98 O2 Sat by Pulse 95 96 95 Oximetry 09/19/21 09/19/21 09/19/21 14:31 14:45 15:01 Temperature Pulse Rate 121 H 109 H 76 Respiratory 23 31 H 28 H Rate Blood Pressure 150/96 145/87 153/66 O2 Sat by Pulse 94 96 96 Oximetry 09/19/21 09/19/21 09/19/21 15:15 15:31 15:45 Temperature Pulse Rate 73 70 73 Respiratory 23 14 23 Rate Blood Pressure 145/72 131/73 135/64 O2 Sat by Pulse 95 97 98 Oximetry 09/19/21 09/19/21 09/19/21 16:01 16:15 16:31 Temperature Pulse Rate 70 71 71 Respiratory 23 22 21 Rate Blood Pressure 91/51 114/61 116/72 O2 Sat by Pulse 96 94 96 Oximetry 09/19/21 09/19/21 09/19/21 16:45 17:01 17:15 Temperature Pulse Rate 71 86 82 Respiratory 24 16 22 Rate Blood Pressure 127/53 124/49 118/94 O2 Sat by Pulse 92 94 95 Oximetry - Reevaluation(s) Reevaluation #1: 09/19/21 08:28 pt's HR improved with lopressor, bp stable. morphine 2mg for pain. 09/19/21 09:50 Cardizem drip has been initiated for better heart rate and blood pressure control - Consultations Consultation #1: 09/19/21 08:28 call initiated by me to [facility] transfer service. awaiting call back form ct surgeon. 09/19/21 09:01 I did receive a call back from [facility] stating they were unable to identify patient in their system. Requested that they still contact the CT surgeon on- call. I re-question patient she insists that her procedure was done at [facility] alone. Also called her daughter (Alex who states that patient did have her surgery at [facility]. Both daughter and patient states year of is 1935 although patient's license has 1935 and all the patient's previous visits here were under the year 1937. Patient appears to be unsure of her birthdate 09/19/21 09:32 MB was able to identify patient's chart under the year 1937. Case discussed with cardiothoracic surgeon and images sent for review. Awaiting callback for disposition planning 09/19/21 09:49 Patient has been accepted by Dr. Joaquin for transfer pending ICU bed. Recommend keep systolic blood pressure less than 120 heart rate less than 100 CUAUHTEMOC score - Cuauhtemoc Score Age > 65: (1) Yes Aspirin use within the Past 7 Days: (0) No 3 or more CAD Risk Factors: (1) Yes 2 or more Angina events in past 24 hrs: (1) Yes Known CAD with more than 50% Stenosis: (0) No Elevated Cardiac Markers: (0) No ST Deviation Greater than 0.5mm: (0) No CUAUHTEMOC Score: 3 ED Medical Decision Making - Lab Data Result diagrams: 09/19/21 04:55 09/19/21 04:55 Lab Results 09/19/21 09/19/21 09/19/21 Range/Units 04:55 04:55 04:55 WBC 7.8 (4.5-11.0) K/mm3 RBC 4.89 (3.65-5.03) M/mm3 Hgb 13.3 (10.1-14.3) gm/dl Hct 41.8 (30.3-42.9) % MCV 86 (79-97) fl MCH 27 L (28-32) pg MCHC 32 (30-34) % RDW 15.9 H (13.2-15.2) % Plt Count 179 (140-440) K/mm3 Lymph % (Auto) 19.0 (13.4-35.0) % [place] % (Auto) 8.9 H (0.0-7.3) % Eos % (Auto) 1.8 (0.0-4.3) % Baso % (Auto) 0.9 (0.0-1.8) % Lymph # (Auto) 1.5 (1.2-5.4) K/mm3 [place] # (Auto) 0.7 (0.0-0.8) K/mm3 Eos # (Auto) 0.1 (0.0-0.4) K/mm3 Baso # (Auto) 0.1 (0.0-0.1) K/mm3 Seg Neutrophils % 69.4 (40.0-70.0) % Seg Neutrophils # 5.4 (1.8-7.7) K/mm3 PT 27.6 H (12.2-14.9) Sec. INR 2.34 H (0.87-1.13) Sodium 137 (137-145) mmol/L Potassium 4.4 (3.6-5.0) mmol/L Chloride 101.6 (98-107) mmol/L Carbon Dioxide 25 (22-30) mmol/L Anion Gap 15 mmol/L BUN 19 H (7-17) mg/dL Creatinine 1.1 (0.6-1.2) mg/dL Estimated GFR 57 ml/min BUN/Creatinine Ratio 17 % Glucose 177 H (65-100) mg/dL POC Glucose (70-105) mg/dL Calcium 11.0 H (8.4-10.2) mg/dL Total Bilirubin 0.30 (0.1-1.2) mg/dL AST 18 (5-40) units/L ALT 15 (7-56) units/L Alkaline Phosphatase 81 (35-129) units/L Troponin T 0.010 (0.00-0.029) ng/mL NT-Pro-B Natriuret Pep 2750 H (0-900) pg/mL Total Protein 7.4 (6.3-8.2) g/dL Albumin 3.6 L (3.9-5) g/dL Albumin/Globulin Ratio 0.9 % Lipase 12 L (13-60) units/L Urine Color (Yellow) Urine Turbidity (Clear) Urine pH (5.0-7.0) Ur Specific [place] (1.003-1.030) Urine Protein (Negative) mg/dL Urine Glucose (UA) (Negative) mg/dL Urine Ketones (Negative) mg/dL Urine Blood (Negative) Urine Nitrite (Negative) Urine Bilirubin (Negative) Urine Urobilinogen (<2.0) mg/dL Ur Leukocyte Esterase (Negative) Urine WBC (Auto) (0.0-6.0) /HPF Urine RBC (Auto) (0.0-6.0) /HPF Digoxin (0.9-2.0) ng/mL SARS-CoV-2 (PCR) (Negative) Blood Type Antibody Screen 09/19/21 09/19/21 09/19/21 Range/Units 06:57 09:38 09:38 WBC (4.5-11.0) K/mm3 RBC (3.65-5.03) M/mm3 Hgb (10.1-14.3) gm/dl Hct (30.3-42.9) % MCV (79-97) fl MCH (28-32) pg MCHC (30-34) % RDW (13.2-15.2) % Plt Count (140-440) K/mm3 Lymph % (Auto) (13.4-35.0) % [place] % (Auto) (0.0-7.3) % Eos % (Auto) (0.0-4.3) % Baso % (Auto) (0.0-1.8) % Lymph # (Auto) (1.2-5.4) K/mm3 [place] # (Auto) (0.0-0.8) K/mm3 Eos # (Auto) (0.0-0.4) K/mm3 Baso # (Auto) (0.0-0.1) K/mm3 Seg Neutrophils % (40.0-70.0) % Seg Neutrophils # (1.8-7.7) K/mm3 PT (12.2-14.9) Sec. INR (0.87-1.13) Sodium (137-145) mmol/L Potassium (3.6-5.0) mmol/L Chloride (98-107) mmol/L Carbon Dioxide (22-30) mmol/L Anion Gap mmol/L BUN (7-17) mg/dL Creatinine (0.6-1.2) mg/dL Estimated GFR ml/min BUN/Creatinine Ratio % Glucose (65-100) mg/dL POC Glucose (70-105) mg/dL Calcium (8.4-10.2) mg/dL Total Bilirubin (0.1-1.2) mg/dL AST (5-40) units/L ALT (7-56) units/L Alkaline Phosphatase (35-129) units/L Troponin T < 0.010 (0.00-0.029) ng/mL NT-Pro-B Natriuret Pep (0-900) pg/mL Total Protein (6.3-8.2) g/dL Albumin (3.9-5) g/dL Albumin/Globulin Ratio % Lipase (13-60) units/L Urine Color (Yellow) Urine Turbidity (Clear) Urine pH (5.0-7.0) Ur Specific [place] (1.003-1.030) Urine Protein (Negative) mg/dL Urine Glucose (UA) (Negative) mg/dL Urine Ketones (Negative) mg/dL Urine Blood (Negative) Urine Nitrite (Negative) Urine Bilirubin (Negative) Urine Urobilinogen (<2.0) mg/dL Ur Leukocyte Esterase (Negative) Urine WBC (Auto) (0.0-6.0) /HPF Urine RBC (Auto) (0.0-6.0) /HPF Digoxin 0.6 L (0.9-2.0) ng/mL SARS-CoV-2 (PCR) (Negative) Blood Type AB POSITIVE Antibody Screen Negative 09/19/21 09/19/21 09/19/21 Range/Units 10:05 10:28 17:21 WBC (4.5-11.0) K/mm3 RBC (3.65-5.03) M/mm3 Hgb (10.1-14.3) gm/dl Hct (30.3-42.9) % MCV (79-97) fl MCH (28-32) pg MCHC (30-34) % RDW (13.2-15.2) % Plt Count (140-440) K/mm3 Lymph % (Auto) (13.4-35.0) % [place] % (Auto) (0.0-7.3) % Eos % (Auto) (0.0-4.3) % Baso % (Auto) (0.0-1.8) % Lymph # (Auto) (1.2-5.4) K/mm3 [place] # (Auto) (0.0-0.8) K/mm3 Eos # (Auto) (0.0-0.4) K/mm3 Baso # (Auto) (0.0-0.1) K/mm3 Seg Neutrophils % (40.0-70.0) % Seg Neutrophils # (1.8-7.7) K/mm3 PT (12.2-14.9) Sec. INR (0.87-1.13) Sodium (137-145) mmol/L Potassium (3.6-5.0) mmol/L Chloride (98-107) mmol/L Carbon Dioxide (22-30) mmol/L Anion Gap mmol/L BUN (7-17) mg/dL Creatinine (0.6-1.2) mg/dL Estimated GFR ml/min BUN/Creatinine Ratio % Glucose (65-100) mg/dL POC Glucose 135 H 187 H (70-105) mg/dL Calcium (8.4-10.2) mg/dL Total Bilirubin (0.1-1.2) mg/dL AST (5-40) units/L ALT (7-56) units/L Alkaline Phosphatase (35-129) units/L Troponin T (0.00-0.029) ng/mL NT-Pro-B Natriuret Pep (0-900) pg/mL Total Protein (6.3-8.2) g/dL Albumin (3.9-5) g/dL Albumin/Globulin Ratio % Lipase (13-60) units/L Urine Color (Yellow) Urine Turbidity (Clear) Urine pH (5.0-7.0) Ur Specific [place] (1.003-1.030) Urine Protein (Negative) mg/dL Urine Glucose (UA) (Negative) mg/dL Urine Ketones (Negative) mg/dL Urine Blood (Negative) Urine Nitrite (Negative) Urine Bilirubin (Negative) Urine Urobilinogen (<2.0) mg/dL Ur Leukocyte Esterase (Negative) Urine WBC (Auto) (0.0-6.0) /HPF Urine RBC (Auto) (0.0-6.0) /HPF Digoxin (0.9-2.0) ng/mL SARS-CoV-2 (PCR) Negative (Negative) Blood Type Antibody Screen 09/19/21 Range/Units Unknown WBC (4.5-11.0) K/mm3 RBC (3.65-5.03) M/mm3 Hgb (10.1-14.3) gm/dl Hct (30.3-42.9) % MCV (79-97) fl MCH (28-32) pg MCHC (30-34) % RDW (13.2-15.2) % Plt Count (140-440) K/mm3 Lymph % (Auto) (13.4-35.0) % [place] % (Auto) (0.0-7.3) % Eos % (Auto) (0.0-4.3) % Baso % (Auto) (0.0-1.8) % Lymph # (Auto) (1.2-5.4) K/mm3 [place] # (Auto) (0.0-0.8) K/mm3 Eos # (Auto) (0.0-0.4) K/mm3 Baso # (Auto) (0.0-0.1) K/mm3 Seg Neutrophils % (40.0-70.0) % Seg Neutrophils # (1.8-7.7) K/mm3 PT (12.2-14.9) Sec. INR (0.87-1.13) Sodium (137-145) mmol/L Potassium (3.6-5.0) mmol/L Chloride (98-107) mmol/L Carbon Dioxide (22-30) mmol/L Anion Gap mmol/L BUN (7-17) mg/dL Creatinine (0.6-1.2) mg/dL Estimated GFR ml/min BUN/Creatinine Ratio % Glucose (65-100) mg/dL POC Glucose (70-105) mg/dL Calcium (8.4-10.2) mg/dL Total Bilirubin (0.1-1.2) mg/dL AST (5-40) units/L ALT (7-56) units/L Alkaline Phosphatase (35-129) units/L Troponin T (0.00-0.029) ng/mL NT-Pro-B Natriuret Pep (0-900) pg/mL Total Protein (6.3-8.2) g/dL Albumin (3.9-5) g/dL Albumin/Globulin Ratio % Lipase (13-60) units/L Urine Color Yellow (Yellow) Urine Turbidity Cloudy (Clear) Urine pH 6.0 (5.0-7.0) Ur Specific [place] 1.009 (1.003-1.030) Urine Protein 30 mg/dl (Negative) mg/dL Urine Glucose (UA) Neg (Negative) mg/dL Urine Ketones Neg (Negative) mg/dL Urine Blood Sm (Negative) Urine Nitrite Neg (Negative) Urine Bilirubin Neg (Negative) Urine Urobilinogen < 2.0 (<2.0) mg/dL Ur Leukocyte Esterase Mod (Negative) Urine WBC (Auto) < 1.0 (0.0-6.0) /HPF Urine RBC (Auto) < 1.0 (0.0-6.0) /HPF Digoxin (0.9-2.0) ng/mL SARS-CoV-2 (PCR) (Negative) Blood Type Antibody Screen - EKG Data -: EKG Interpreted by Me (Atrial fibrillation) EKG shows normal: intervals (QTC interval normal 376), QRS complexes (QRS duration normal 72), ST-T waves (Anterolateral ST depression) - EKG Data When compared to previous EKG there are: changes noted (Compared to previous EKG, new anterior ST) - Radiology Data Radiology results: report reviewed CHEST 1 VIEW INDICATION / CLINICAL INFORMATION: Chest Pain. COMPARISON: Chest x-ray 06/27/2020 FINDINGS: SUPPORT DEVICES: None. HEART / MEDIASTINUM: Mild cardiomegaly stable. Sternal wires, aortic stent, and cardiac pacemaker unchanged in appearance. LUNGS / PLEURA: No significant pulmonary or pleural abnormality. No pneumothorax. ADDITIONAL FINDINGS: No significant additional findings. IMPRESSION: 1. No active cardiopulmonary disease. CT angio chest, CT angio abdomen pelvis INDICATION / CLINICAL INFORMATION: chest and back pain, hx of aorta repair. TECHNIQUE: CTA of the chest, abdomen and pelvis. MIPS were performed. All CT scans at this location are performed using CT dose reduction for ALARA by means of automated exposure control. 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 On prior study this measured 5 cm. There is large quantity of mural thrombus. Large quantity of atherosclerosis involves the origin of the bilateral renal arteries. There is also atherosclerosis involving the superior mesenteric and celiac arteries without definite high-grade stenosis. Large quantity of atherosclerosis involves the inferior mesenteric artery origin as well. CHEST: Lungs: Small right greater than left pleural effusions. Dependent atelectasis. No pneumothorax. Heart: No significant abnormality. Mediastinum: There is nonspecific soft tissue seen on the right posterior aspect of the mediastinum and pulmonary posterior mediastinum anterior to the aorta and around the esophagus. There is no contrast seen extravasating into this region. For example this can be seen on image 102 of series 2. There are vessel seen coursing through the region ADDITIONAL FINDINGS: None. ABDOMEN and PELVIS: Liver: No significant abnormality. Biliary: Gallstones without gallbladder wall thickening or pericholecystic fluid. Spleen: No significant abnormality. Pancreas: No significant abnormality. Adrenals: No significant abnormality. Kidneys: No significant abnormality. Lymphatics: No lymphadenopathy. Bowel/Peritoneum: Nonobstructive bowel pattern. Diverticulosis without mesocolonic fat stranding. No free air. No free fluid. Normal appendix. Pelvis: Numerous bladder diverticulum. Osseous Structures: No aggressive osseous lesion. L5 pars defects with 1 cm anterolisthesis of L5 on S1, unchanged. Additional Findings: None IMPRESSION: 1. Prior endograft repair of the thoracic aorta, similar to prior exam. There is aneurysm of the distal thoracic and intra-abdominal aneurysm which begins at the distal portion of the endograft repair. The aneurysm measures up to approximately 5.7 cm at the level the diaphragm crura which is larger than prior exam. There is extensive soft tissue density in the posterior mediastinum without definite extravasation of contrast. However, this is highly concerning for rupture. 2. Large quantity of mural thrombus with large quantity of atherosclerosis at the origin of the intra- abdominal vessels. 3. Cholelithiasis. 4. L5 spondylolysis with grade 2 listhesis. Critical Care Time: Yes Critical care time in (mins) excluding proc time.: 35 Critical care attestation.: If time is entered above; I have spent that time in minutes in the direct care of this critically ill patient, excluding procedure time. Critical Care Time: 35 Minutes of critical care time excluding procedures were used in the care of the patient. I discussed treatment plan with the nursing team members. I reviewed electronic record. I spoke with family to obtain medical history. Patient required multiple interventions and reassessments. Spoke with hospitalist and consultants in order to expedite care. ED Disposition Clinical Impression: Atrial fibrillation with RVR, Anticoagulated on Coumadin Ruptured aortic aneurysm Qualifiers: Aortic location: thoracic aorta Qualified Code(s): I71.1 - Thoracic aortic aneurysm, ruptured Disposition: 09 ADMITTED INPATIENT Is pt being admited?: No Condition: Stable Referrals: PRIMARY CARE, [Primary Care Provider] - 3-5 Days
[2021-09-19] MEDS ORDERED: METOPROLOL TARTRATE 5 MG/5 ML INJ IV ONE (06:51)
[2021-09-19] MEDS ORDERED: MORPHINE 2 MG/1 ML INJ IV ONE (06:51)
[2021-09-19 06:52] LABS: Bilirubin,Urine NEG (Negative); Blood,Urine SM (Negative); Color,Urine Yellow (Yellow); Urobilinogen,Urine < 2.0 mg/dL (<2.0)
[2021-09-19 06:55] LABS: RBC,Urine < 1.0 /HPF (0.0-6.0); WBC,Urine < 1.0 /HPF (0.0-6.0)
--- NOTE | 2021-09-19 08:22 | Cat Scan Report ---
CT angio chest, CT angio abdomen pelvis INDICATION / CLINICAL INFORMATION: chest and back pain, hx of aorta repair. TECHNIQUE: CTA of the chest, abdomen and pelvis. MIPS were performed. All CT scans at this location are performe d using CT dose reduction for ALARA by means of automated exposure control. 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 On prior study this measured 5 cm. There is large quantity of mural thrombus. Large quantity of atherosclerosis involves the origin of the bilateral renal arteries. There is also atherosclerosis involving the superior mesenteric and celiac arteries without definite high-grade ximena nosis. Large quantity of atherosclerosis involves the inferior mesenteric artery origin as well. CHEST: Lungs: Small right greater than left pleural effusions. Dependent atelectasis. No pneumothorax. Heart: No significant abnormality. Mediastinum: There is nonspecific soft tissue seen on the right posterior aspect of the mediastinum a nd pulmonary posterior mediastinum anterior to the aorta and around the esophagus. There is no contra st seen extravasating into this region. For example this can be seen on image 102 of series 2. There are vessel seen coursing through the region ADDITIONAL FINDINGS: None. ABDOMEN and PELVIS: Liver: No significant abnormality. Biliary: Gallstones without gallbladder wall thickening or pericholecystic fluid. Spleen: No significant abnormality. Pancreas: No significant abnormality. Adrenals: No significant abnormality. Kidneys: No significant abnormality. Lymphatics: No lymphadenopathy. Bowel/Peritoneum: Nonobstructive bowel pattern. Diverticulosis without mesocolonic fat stranding. No free air. No free fluid. Normal appendix. Pelvis: Numerous bladder diverticulum. Osseous Structures: No aggressive osseous lesion. L5 pars defects with 1 cm anterolisthesis of L5 on S1, unchanged. Additional Findings: None IMPRESSION: 1. Prior endograft repair of the thoracic aorta, similar to prior exam. 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 The aneurysm measures up to approximately 5.7 cm at the level the diaphragm crura which is larger nila n prior exam. There is extensive soft tissue density in the posterior mediastinum without definite ex travasation of contrast. However, this is highly concerning for rupture. 2. Large quantity of mural thrombus with large quantity of atherosclerosis at the origin of the intra -abdominal vessels. 3. Cholelithiasis. 4. L5 spondylolysis with grade [address] Becerril at 7:15 Signer Name: Estevan Negro MD Signed: 09/19/2021 8:17 AM Workstation Name: [id number]
[2021-09-19] MEDS: dilTIAZem/D5W 100 MG/100 ML BAG IV SCH ×2 (09:45→17:38)
[2021-09-19] MEDS ORDERED: niCARdipine DRIP 40 MG/200 ML BAG IV SCH (13:00)
[2021-09-19] MEDS ORDERED: MORPHINE 4 MG/1 ML INJ IV ONE (13:59)
[2021-09-19] MEDS ORDERED: ONDANSETRON 4 MG/2 ML INJ IV ONE (13:59)
[2021-09-19 17:44] VITALS: BP 118/94
--- NOTE | 2021-09-20 14:29 | Electrocardiograph Report ---
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
--- NOTE | 2021-09-23 10:04 | XRay Report ---
CHEST 1 VIEW INDICATION / CLINICAL INFORMATION: Chest Pain. COMPARISON: Chest x-ray 06/27/2020 FINDINGS: SUPPORT DEVICES: None. HEART / MEDIASTINUM: Mild cardiomegaly stable. Sternal wires, aortic stent, and cardiac pacemaker unchanged in appearance. LUNGS / PLEURA: No significant pulmonary or pleural abnormality. No pneumothorax. ADDITIONAL FINDINGS: No significant additional findings. IMPRESSION: 1. No active cardiopulmonary disease. Signer Name: Dex Tejada II, MD Signed: 09/19/2021 4:54 AM Workstation Name: [id number]
== END 2021-09-19 17:47 | disposition admitted as inpatient to this hospital (09) ==
LOC: ED 04:30
DX: I48.20 Chronic atrial fibrillation, unspecified (principal); I71.1 Thoracic aortic aneurysm, ruptured; Z20.822 Contact with and (suspected) exposure to COVID-19; Z79.01 Long term (current) use of anticoagulants; I11.0 Hypertensive heart disease with heart failure; I50.9 Heart failure, unspecified; E11.9 Type 2 diabetes mellitus without complications; M19.90 Unspecified osteoarthritis, unspecified site; Z98.890 Other specified postprocedural states; Z79.899 Other long term (current) drug therapy; Z79.82 Long term (current) use of aspirin; Z79.4 Long term (current) use of insulin
CPT/HCPCS: 36415; 71045; 71275; 74174; 80053; 80162; 81001; 82962; 83690; 83880; 84484; 85025; 85610; 86850; 86900; 86901; 93005; 93010; 96365; 96366; 96375; 96376; 99291; J1940; J2270; J2405; J3490; J9280; Q9967; U0003; 99285